=== PATIENT | female | born 1995 | race African-American/Black ===

== ENCOUNTER 2020-01-11 13:58 | Inpatient (IN) | payer MEDICAID, OTHER ==
[~2020-01-11] VITALS: Ht 167.6 cm; Wt 60.7 kg
[2020-01-11] MEDS ORDERED: SODIUM CHLORIDE 0.9% 1,000 ML IVB ONE (14:12)
[2020-01-11 14:23] LABS: Basophils # (auto) 0.1 10 ^3/uL (0-0.2); Basophils % (auto) 0.8 % (0.0-2.0); Eosinophils # (auto) 0 10 ^3/uL (0-0.8); Hematocrit 39.1 % (36.0-46.0); Hemoglobin 13.4 g/dL (12.2-16.2); Lymphocytes # (auto) 1.3 10 ^3/uL (0.4-5.4); Lymphocytes % (auto) 12.2 % (10.0-50.0); Mean Corpuscular Hemoglobin 29.6 pg (28.0-32.0); Mean Corpuscular Hgb Conc. 34.3 g/dL (32.0-36.0); Mean Corpuscular Volume 86.2 fL (80.0-100.0); Monocytes # (auto) 0.6 10 ^3/uL (0-1.3); Nucleated Red Blood Cells % 0.1 %; Platelet Count (auto) 405 10^3/uL (140-450); Red Blood Cells 4.53 10^6/uL (4.0-5.20); Red Cell Distribution Width 13.8 % (11.8-14.3)
[2020-01-11] MEDS: PROMETHAZINE HCL 25 MG/ML 1ML IV PRN ×2 (14:26→22:52)
[2020-01-11 14:41] LABS: Albumin 4.1 g/dL (3.4-5.0); Calcium 8.8 mg/dL (8.5-10.1)
[2020-01-11 14:45] LABS: BUN/Creatinine Ratio 17.6; Bilirubin, Total 0.6 mg/dL (0.2-1.0); Total Protein 8.1 g/dL (6.4-8.2)
[2020-01-11 16:19] LABS: Urine Bacteria NONE SEEN /hpf (None Seen); Urine Blood 1+ /uL (Negative); Urine Mucus FEW (None Seen); Urine Specific Gravity 1.037 (1.001-1.035); Urine WBC 2 /hpf (0 - 5)
[2020-01-11] MEDS ORDERED: SODIUM CHLORIDE 0.9% 1,000 ML IV ONE (17:00)
[2020-01-11] MEDS ORDERED: ONDANSETRON HCL 4 MG/2 ML VIAL IV ONE (17:15)
[2020-01-11] MEDS ORDERED: PROMETHAZINE HCL 25 MG/ML 1ML IV ONE (19:30)
[2020-01-11] MEDS ORDERED: ACETAMINOPHEN 325 MG TAB PO PRN (21:00)
[2020-01-11] MEDS ORDERED: HYDROcodone-ACET 5/325MG TAB PO PRN (21:00)
[2020-01-11] MEDS: POTASSIUM CHL 20MEQ/100ML 100 ML IV SCH (21:05)
[2020-01-11] MEDS: PANTOPRAZOLE 40 MG/10 ML VIAL INJ IV SCH (21:15)
[2020-01-11] MEDS: SODIUM CHLORIDE 0.9% 1,000 ML IV SCH (21:15)
[2020-01-11] MEDS: ONDANSETRON HCL 4 MG/2 ML VIAL IV PRN (21:16)
[2020-01-11 22:30] VITALS: BP 112/72
[2020-01-12] MEDS: POTASSIUM CHL 20MEQ/100ML 100 ML IV SCH (00:36)
[2020-01-12] MEDS: ONDANSETRON HCL 4 MG/2 ML VIAL IV PRN (02:09)
[2020-01-12 05:00] VITALS: BP 102/65
[2020-01-12] MEDS: PROMETHAZINE HCL 25 MG/ML 1ML IV PRN ×3 (05:18→19:25)
[2020-01-12] MEDS: SODIUM CHLORIDE 0.9% 1,000 ML IV SCH ×4 (05:43→23:34)
[2020-01-12 09:00] VITALS: BP 118/61
[2020-01-12] MEDS: PANTOPRAZOLE 40 MG/10 ML VIAL INJ IV SCH (10:44)
[2020-01-12 13:00] VITALS: BP 109/65
[2020-01-12] MEDS: METOCLOPRAMIDE HCL 5MG/ml INJ 2ml VIAL IV PRN (15:34)
[2020-01-12 15:45] LABS: BUN/Creatinine Ratio 12.8; Calcium 8.3 mg/dL (8.5-10.1); Potassium 3.2 mmol/L (3.5-5.1)
[2020-01-12] MEDS ORDERED: ACET-1304 PO (16:28)
[2020-01-12 17:00] VITALS: BP 116/65
[2020-01-12 22:00] VITALS: BP 120/74
[2020-01-13] MEDS: METOCLOPRAMIDE HCL 5MG/ml INJ 2ml VIAL IV PRN ×2 (00:03→17:30)
[2020-01-13 05:00] VITALS: BP 129/73
[2020-01-13] MEDS: PROMETHAZINE HCL 25 MG/ML 1ML IV PRN (05:21)
[2020-01-13 05:55] LABS: Basophils # (auto) 0 10 ^3/uL (0-0.2); Basophils % (auto) 0.6 % (0.0-2.0); Eosinophils # (auto) 0.1 10 ^3/uL (0-0.8); Eosinophils % (auto) 1.7 % (0.0-7.0); Hemoglobin 11.7 g/dL (12.2-16.2); Lymphocytes # (auto) 2.5 10 ^3/uL (0.4-5.4); Lymphocytes % (auto) 32.5 % (10.0-50.0); Mean Corpuscular Hgb Conc. 33.3 g/dL (32.0-36.0); Monocytes # (auto) 0.5 10 ^3/uL (0-1.3); Monocytes % (auto) 6.6 % (0.0-12.0); Neutrophils # (auto) 4.5 10 ^3/uL (1.6-8.6); Neutrophils % (auto) 58.6 % (37.0-80.0); Nucleated Red Blood Cells % 0.1 %; Platelet Count (auto) 338 10^3/uL (140-450); Red Blood Cells 4.03 10^6/uL (4.0-5.20); Red Cell Distribution Width 13.4 % (11.8-14.3); White Blood Cell 7.6 10^3/uL (4.4-10.8)
[2020-01-13 06:14] LABS: BUN/Creatinine Ratio 11.3
[2020-01-13 06:17] LABS: Potassium 2.9 mmol/L (3.5-5.1)
[2020-01-13] MEDS ORDERED: POTASSIUM CHL 20 Meq TABLET PO ONE ×2 (06:45→10:30)
[2020-01-13 09:00] VITALS: BP 144/81
[2020-01-13] MEDS: PANTOPRAZOLE 40 MG/10 ML VIAL INJ IV SCH ×2 (10:38→21:25)
[2020-01-13 10:54] LABS: Barbiturate Scree,Urine NEGATIVE (NEGATIVE); Cannabinoid Screen, Urine POSITIVE (NEGATIVE)
[2020-01-13 11:01] LABS: Amphetamine Screen, Urine NEGATIVE (NEGATIVE); Benzodiazephine Screen, Urine NEGATIVE (NEGATIVE); Cocaine Screen, Urine NEGATIVE (NEGATIVE); Opiate Scree,Urine NEGATIVE (NEGATIVE); Phencyclidine Screen, Urine NEGATIVE (NEGATIVE)
[2020-01-13] MEDS: SODIUM CHLORIDE 0.9% 1,000 ML IV SCH ×3 (11:04→23:38)
[2020-01-13 12:20] LABS: INR 1.19 (0.9-1.15)
[2020-01-13 13:00] VITALS: BP 128/76
[2020-01-13] MEDS: HYOSCYAMINE SULF 0.125 MG ODT TAB PO PRN ×2 (13:47→19:52)
[2020-01-13] MEDS ORDERED: POTASSIUM CHLORIDE 60 MEQ, LIDOCAINE 1% (LOCAL ANESTH.) 6 ML in SODIUM CHL 0.9% 500 ML IV ONE (15:15)
[2020-01-13 17:00] VITALS: BP 135/78
[2020-01-13 21:33] VITALS: BP 124/73
[2020-01-14] MEDS: METOCLOPRAMIDE HCL 5MG/ml INJ 2ml VIAL IV PRN (01:44)
[2020-01-14 05:00] VITALS: BP 109/54
[2020-01-14 06:42] LABS: BUN/Creatinine Ratio 12.1; Calcium 8.1 mg/dL (8.5-10.1); Magnesium 1.8 mg/dL (1.6-2.6); Potassium 3.2 mmol/L (3.5-5.1)
[2020-01-14 09:00] VITALS: BP 128/71
[2020-01-14] MEDS: PANTOPRAZOLE 40 MG/10 ML VIAL INJ IV SCH (10:23)
[2020-01-14] MEDS: POTASSIUM CHL 20MEQ/100ML 100 ML IV SCH ×2 (11:15→13:15)
[2020-01-14] MEDS ORDERED: MAGNESIUM SULFATE 1GM/100ML 100 ML IV ONE (11:15)
[2020-01-14] MEDS ORDERED: LABETALOL HCL 5 MG/ML 4ML SYRINGE IV PRN (12:30)
[2020-01-14] MEDS ORDERED: MIDAZOLAM HCL 1MG/1ML-2 ML VIAL IV PRN (12:30)
[2020-01-14] MEDS ORDERED: MORPHINE SULFATE 4 MG/ML SYR/VIAL IV PRN (12:30)
[2020-01-14] MEDS ORDERED: ONDANSETRON HCL 4 MG/2 ML VIAL IV PRN (12:30)
[2020-01-14] MEDS ORDERED: ePHEDrine SULFATE 50 MG/ML AMP IV PRN (12:30)
[2020-01-14] MEDS ORDERED: METOCLOPRAMIDE HCL 5MG/ml INJ 2ml VIAL IV PRN (12:30)
[2020-01-14] MEDS ORDERED: HYDROmorphone HCL 2 MG/ML VL IV PRN (12:30)
[2020-01-14] MEDS ORDERED: fentaNYL CITRATE 100 MCG/2 ML VL ONE (12:33)
[2020-01-14] MEDS ORDERED: MIDAZOLAM HCL 1MG/1ML-2 ML VIAL ONE (12:34)
[2020-01-14] MEDS ORDERED: DexAMETHasone SOD PHOS 10MG/1ML VIAL INJ ONE (12:49)
[2020-01-14] MEDS ORDERED: PROPOFOL 10 MG/ML 20 ML IV ONE (12:50)
[2020-01-14 13:00] VITALS: BP 136/71
[2020-01-14] MEDS ORDERED: ONDA-144 PO (16:00)
[2020-01-14] MEDS ORDERED: POTASSIUM CHL 20 Meq TABLET PO ONE (16:00)
[2020-01-14 17:00] VITALS: BP 116/73
[2020-01-14 17:01] VITALS: BP 136/71
== END 2020-01-14 18:30 | disposition home or self-care (01) | DRG 249 ==
LOC: ER 13:58 → OVERFLOW 13:59 → WEST WING 22:26
PROVIDERS: ADMIT Hospitalist; ATTEND Internal Medicine
PROC: 0DB68ZX Excision of Stomach, Via Natural or Artificial Opening Endoscopic, Diagnostic (ICD-10-PCS; principal; 2020-01-14 12:25)
DX: R11.2 Nausea with vomiting, unspecified (principal); N17.0 Acute kidney failure with tubular necrosis; J12.81 Pneumonia due to SARS-associated coronavirus; F12.90 Cannabis use, unspecified, uncomplicated; K44.9 Diaphragmatic hernia without obstruction or gangrene; E87.8 Other disorders of electrolyte and fluid balance, not elsewhere classified; E87.6 Hypokalemia; F17.210 Nicotine dependence, cigarettes, uncomplicated; Z79.899 Other long term (current) drug therapy
CPT/HCPCS: 36415; 43239; 74176; 80048; 80053; 80307; 81001; 81025; 82150; 83690; 83735; 84132; 84702; 85025; 85610; 86850; 86900; 86901; C9113; G0378; J1100; J2001; J2250; J2405; J2704; J3480

== ENCOUNTER 2020-01-29 10:52 | Inpatient (IN) | payer MEDICAID ==
[~2020-01-29] VITALS: Ht 167.6 cm; Wt 61.4 kg
[~2020-01-29 10:52] MED LIST: ACET-1304 PO; ONDA-144 PO
[2020-01-29] MEDS ORDERED: PANTOPRAZOLE 40 MG/10 ML VIAL INJ IV STA (10:59)
[2020-01-29] MEDS ORDERED: SODIUM CHLORIDE 0.9% 1,000 ML IVB ONE (10:59)
[2020-01-29] MEDS ORDERED: MORPHINE SULFATE 4 MG/ML SYR/VIAL IV ONE (11:00)
[2020-01-29] MEDS ORDERED: PROCHLORPERAZINE EDISYLATE 5 MG/ML 2ML VIAL IV ONE (11:00)
[2020-01-29 11:17] LABS: Basophils # (auto) 0.1 10 ^3/uL (0-0.2); Eosinophils # (auto) 0 10 ^3/uL (0-0.8); Lymphocytes # (auto) 1.8 10 ^3/uL (0.4-5.4); Monocytes # (auto) 0.8 10 ^3/uL (0-1.3); Nucleated Red Blood Cells % 0.1 %; Red Cell Distribution Width 14.2 % (11.8-14.3)
[2020-01-29 11:18] LABS: Basophils % (auto) 0.5 % (0.0-2.0); Hematocrit 42.4 % (36.0-46.0); Hemoglobin 13.9 g/dL (12.2-16.2); Lymphocytes % (auto) 17.8 % (10.0-50.0); Mean Corpuscular Hemoglobin 28.6 pg (28.0-32.0); Mean Corpuscular Hgb Conc. 32.7 g/dL (32.0-36.0); Mean Corpuscular Volume 87.3 fL (80.0-100.0); Neutrophils # (auto) 7.6 10 ^3/uL (1.6-8.6); Neutrophils % (auto) 73.7 % (37.0-80.0); Platelet Count (auto) 549 10^3/uL (140-450); Red Blood Cells 4.86 10^6/uL (4.0-5.20); White Blood Cell 10.3 10^3/uL (4.4-10.8)
[2020-01-29 11:34] LABS: Albumin 4.3 g/dL (3.4-5.0); Calcium 9.7 mg/dL (8.5-10.1)
[2020-01-29 11:37] LABS: BUN/Creatinine Ratio 16.1; Bilirubin, Total 0.7 mg/dL (0.2-1.0); Total Protein 8.5 g/dL (6.4-8.2)
[2020-01-29] MEDS ORDERED: POTASSIUM CHL 20MEQ/100ML 100 ML IV ONE (11:45)
[2020-01-29] MEDS ORDERED: SODIUM CHLORIDE 0.9% 1,000 ML IV ONE (12:45)
[2020-01-29] MEDS ORDERED: NITROGLYCERIN 0.4 MG SL TAB SL PRN (13:30)
[2020-01-29] MEDS ORDERED: MORPHINE SULF INJ 2 MG/ML SYRINGE 1ML IV PRN (13:30)
[2020-01-29] MEDS ORDERED: SODIUM CHLORIDE 0.9% 1,850 ML IV ONE (13:30)
[2020-01-29 14:08] VITALS: BP 92/53
[2020-01-29] MEDS ORDERED: ACETAMINOPHEN 500 MG TAB PO PRN (14:30)
[2020-01-29] MEDS ORDERED: traMADol HCL 50 MG TAB PO PRN (14:30)
[2020-01-29] MEDS ORDERED: TEMAZEPAM 15 MG CAP PO PRN (14:30)
[2020-01-29] MEDS: FAMOTIDINE (10MG/ML) 2ML VL IV SCH (15:51)
[2020-01-29] MEDS: SOD CHL 0.9%/ KCL 40MEQ 1,000 ML IV SCH (15:51)
[2020-01-29] MEDS: PROMETHAZINE HCL 25 MG/ML 1ML IV PRN ×2 (15:51→20:22)
[2020-01-29 16:59] VITALS: BP 96/49
[2020-01-29 20:00] VITALS: BP 122/73
[2020-01-29 23:04] VITALS: BP 122/73
[2020-01-30] MEDS: PROMETHAZINE HCL 25 MG/ML 1ML IV PRN ×6 (01:23→22:47)
[2020-01-30] MEDS: SOD CHL 0.9%/ KCL 40MEQ 1,000 ML IV SCH ×2 (01:23→10:02)
[2020-01-30] MEDS: FAMOTIDINE (10MG/ML) 2ML VL IV SCH ×2 (02:36→15:01)
[2020-01-30 03:15] LABS: Urine Bacteria FEW /hpf (None Seen); Urine Blood Negative /uL (Negative); Urine Mucus FEW (None Seen); Urine Specific Gravity 1.025 (1.001-1.035); Urine WBC 75 /hpf (0 - 5)
[2020-01-30 05:36] VITALS: BP 120/64
[2020-01-30 06:39] LABS: Albumin 3.2 g/dL (3.4-5.0); Calcium 8.3 mg/dL (8.5-10.1); Potassium 3.7 mmol/L (3.5-5.1)
[2020-01-30 06:43] LABS: BUN/Creatinine Ratio 15.9; Bilirubin, Total 0.5 mg/dL (0.2-1.0); Total Protein 6.1 g/dL (6.4-8.2)
[2020-01-30 08:00] VITALS: BP 104/68
[2020-01-30 09:00] VITALS: BP 104/68
[2020-01-30] MEDS ORDERED: cefTRIAXone 1GM/50ML D5W 50 ML IV ONE (11:00)
[2020-01-30 13:00] VITALS: BP 121/69
[2020-01-30] MEDS ORDERED: ONDA-144 PO (14:13)
[2020-01-30 17:00] VITALS: BP 122/79
[2020-01-30 22:46] VITALS: BP 132/92
[2020-01-31] MEDS: FAMOTIDINE (10MG/ML) 2ML VL IV SCH ×2 (02:30→14:30)
[2020-01-31] MEDS: SOD CHL 0.9%/ KCL 40MEQ 1,000 ML IV SCH ×3 (04:00→16:30)
[2020-01-31] MEDS: PROMETHAZINE HCL 25 MG/ML 1ML IV PRN ×4 (04:32→22:29)
[2020-01-31 05:05] VITALS: BP 133/80
[2020-01-31 06:34] LABS: Basophils # (auto) 0.1 10 ^3/uL (0-0.2); Basophils % (auto) 0.6 % (0.0-2.0); Eosinophils # (auto) 0 10 ^3/uL (0-0.8); Eosinophils % (auto) 0.3 % (0.0-7.0); Lymphocytes # (auto) 2.8 10 ^3/uL (0.4-5.4); Lymphocytes % (auto) 32.4 % (10.0-50.0); Mean Corpuscular Hemoglobin 29.4 pg (28.0-32.0); Mean Corpuscular Hgb Conc. 33.3 g/dL (32.0-36.0); Mean Corpuscular Volume 88.3 fL (80.0-100.0); Monocytes # (auto) 0.7 10 ^3/uL (0-1.3); Monocytes % (auto) 7.6 % (0.0-12.0); Neutrophils # (auto) 5.2 10 ^3/uL (1.6-8.6); Neutrophils % (auto) 59.1 % (37.0-80.0); Nucleated Red Blood Cells % 0.1 %; Platelet Count (auto) 414 10^3/uL (140-450); Red Blood Cells 4.42 10^6/uL (4.0-5.20); Red Cell Distribution Width 13.7 % (11.8-14.3); White Blood Cell 8.7 10^3/uL (4.4-10.8)
[2020-01-31 07:00] LABS: Calcium 8.7 mg/dL (8.5-10.1); Potassium 3.7 mmol/L (3.5-5.1)
[2020-01-31 07:02] LABS: BUN/Creatinine Ratio 6.3
[2020-01-31 08:06] VITALS: BP 127/90
[2020-01-31 09:00] VITALS: BP 127/90
[2020-01-31] MEDS: cefTRIAXone 1GM/50ML D5W 50 ML IV SCH (09:25)
[2020-01-31 12:44] VITALS: BP 124/81
[2020-01-31 17:00] VITALS: BP 130/77
[2020-01-31 22:00] VITALS: BP 122/73
[2020-02-01] MEDS: SOD CHL 0.9%/ KCL 40MEQ 1,000 ML IV SCH ×3 (02:30→21:58)
[2020-02-01] MEDS: FAMOTIDINE (10MG/ML) 2ML VL IV SCH ×2 (03:01→15:10)
[2020-02-01] MEDS: PROMETHAZINE HCL 25 MG/ML 1ML IV PRN ×5 (04:13→23:21)
[2020-02-01 05:00] VITALS: BP 130/78
[2020-02-01 07:11] LABS: BUN/Creatinine Ratio 11.5; Calcium 8.7 mg/dL (8.5-10.1); Potassium 3.9 mmol/L (3.5-5.1)
[2020-02-01 09:00] VITALS: BP 126/70
[2020-02-01] MEDS: cefTRIAXone 1GM/50ML D5W 50 ML IV SCH (09:09)
[2020-02-01 13:00] VITALS: BP 118/65
[2020-02-01 17:00] VITALS: BP 109/78
[2020-02-01 21:55] VITALS: BP 95/53
[2020-02-01 22:00] VITALS: BP 109/72
[2020-02-02] MEDS: D5W/SOD CHLO 0.9% 1,000 ML IV SCH ×2 (01:58→15:58)
[2020-02-02] MEDS: FAMOTIDINE (10MG/ML) 2ML VL IV SCH ×2 (01:58→14:30)
[2020-02-02 04:39] VITALS: BP 106/63
[2020-02-02 09:00] VITALS: BP 103/61
[2020-02-02] MEDS: cefTRIAXone 1GM/50ML D5W 50 ML IV SCH (09:52)
[2020-02-02 13:00] VITALS: BP 104/61
[2020-02-02 14:10] VITALS: BP 104/61
== END 2020-02-02 15:29 | disposition home or self-care (01) | DRG 249 ==
LOC: EDBD 10:52 → ER 10:55 → TELE-CENTR 10:56 → CENTRAL 02-01 08:57
PROVIDERS: ADMIT Internal Medicine; ATTEND Internal Medicine
DX: R11.2 Nausea with vomiting, unspecified (principal); I95.9 Hypotension, unspecified; N39.0 Urinary tract infection, site not specified; Y92.89 Other specified places as the place of occurrence of the external cause; B95.2 Enterococcus as the cause of diseases classified elsewhere; E87.6 Hypokalemia; F17.210 Nicotine dependence, cigarettes, uncomplicated
CPT/HCPCS: 36415; 76705; 80048; 80053; 81001; 81025; 82150; 82962; 83690; 85025; 87081; 87086; 87088; 87186; 96361; 96365; 96366; 96375; C9113; G0378; J0696; J3480; J3490

== ENCOUNTER 2025-04-27 15:26 | Emergency (ER) | payer MEDICAID ==
[~2025-04-27] VITALS: Ht 167.6 cm; Wt 63.6 kg
[2025-04-27 15:33] VITALS: BP 96/71; PULSE 48; RESP 18; TEMP 99; O2SAT 97
--- NOTE | 2025-04-27 16:02 | ED.PDOC ---
GI ASSESSMENT HPI Comments This is a 29 year old female FANTA presenting to the ED with chief complaint of abdominal pain. EMS reports that the patient has been experiencing upper abdominal pain with associated nausea, vomiting, and loss of appetite for the past 2 days. EMS relays that the patient has history of anemia, but is not consistent with her Iron prescription. EMS notes patient was given 4mg of Zofran and IV normal saline. Patient reports that she had smoked marijuana around the time of symptom onset. Patient relays that she is currently on her menses. Patient denies any diarrhea, constipation, dysuria, hematuria, hematemesis, fever, or chills. Chief Complaint: Abdominal Pain Time Seen by MD: 15:42 Reviewed Notes: Nurses Notes, Medications, Allergies Allergies: Coded Allergies: NO KNOWN ALLERGIES (Unverified , 01/11/20) Home Meds Active Scripts Ondansetron (Zofran) 4 Mg Tab, 1 TAB PO Q6HR PRN for NAUSEA / VOMITING, #20 TAB Prov:VAMSHI KONG Pharmacist 01/30/20 Reported Medications Acetaminophen (Tylenol Extra Strength) 500 Mg Tab, 500 MG PO DAILY PRN for MILD PAIN (1-3 PAIN SCALE), TAB 01/12/20 Information Source: Patient Mode of Arrival: Ambulatory Timing: Days Duration: Since onset Prehospital treatment: None Quality: Aching Vomitus: Watery Stool: Normal Severity: Moderate Recent: None Recent Hx of: None Pain Location: Epigastric Modifying Factors: Nothing Associated sign and symptoms: Nausea, Vomiting, Abdominal Pain Past Medical History PAST MEDICAL HISTORY: Denies Surgical History: Denies all surgeries SAND CASTER History: No Pertinent SAND CASTER History Family History Family History: No family hx of Cancer, No family hx of DM, No family hx of Heart ame Social History Smoker: Cigarettes, Less Than 1 Pack/Day Alcohol: Rarely Drugs: Marijuana Lives In: Home Constitutional: denies: chills, diaphoresis, fatigue, fever, malaise, sweats, weakness, others EENTM: denies: blurred vision, double vision, ear bleeding, ear discharge, ear drainage, ear pain, ear ringing, eye pain, eye redness, hearing loss, mouth pain, mouth swelling, nasal discharge, nose bleeding, nose congestion, nose pain, photophobia, tearing, throat pain, throat swelling, voice changes, others Respiratory: denies: cough, hemoptysis, orthopnea, SOB at rest, shortness of breath, SOB with excertion, stridor, wheezing, others Cardiovascular: denies: chest pain, dizzy spells, diaphoresis, Dyspnea on exertion, edema, irregular heart beat, left arm pain, lightheadedness, palpitations, PND, syncope, others Gastrointestinal: reports: abdominal pain, nausea, poor appetite, vomiting; denies: abdomen distended, blood streaked bowels, constipated, diarrhea, dysphagia, difficulty swallowing, hematemesis, melena, poor fluid intake, rectal bleeding, rectal pain, others Genitourinary: denies: abnormal vagina bleeding, burning, dyspareunia, dysuria, flank pain, frequency, hematuria, incontinence, pain, , vagina discharge, urgency, others Neurological: denies: dizziness, fainting, headache, left sided numbness, left sided weakness, numbness, paresthesia, pre-existing deficit, right sided numbness, right sided weakness, seizure, speech problems, tingling, tremors, weakness, others Musculoskeletal: denies: back pain, gout, joint pain, joint swelling, muscle pain, muscle stiffness, neck pain, others Integumetry: denies: bruises, change in color, change in hair/nails, dryness, laceration, lesions, lumps, rash, wounds, others Allergic/Immunocompromised: denies: Difficulty Healing, Frequent Infections, Hives, Itching, others Hematologic/Lymphatic: denies: anemia, blood clots, easy bleeding, easy bruisi ng, swollen glands, others Endocrine: denies: excessive hunger, excessive sweating, excessive thirst, exce ssive urination, flushing, intolerance to cold, intolerance to heat, unexplained weight gain, unexplained weight loss, others Psychiatric: denies: anxiety, bipolar disorder, depression, hopeless, panic disorder, schizophrenia, sleepless, suicidal, others All Other Systems: Reviewed and Negative Physical Exam General Appearance: Moderate Distress, Normal HEENT: Normal ENT Inspection, Pharynx Normal, TMs Normal Neck: Full Range of Motion, Non-Tender, Normal, Normal Inspection Respiratory: Chest Non-Tender, Lungs Clear, No Accessory Muscle Use, No Respiratory Distress, Normal Breath Sounds Cardiovascular: No Edema, No JVD, No Murmur, No Gallop, Normal Peripheral Pulses, Regular Rate/Rhythm Breast Exam: Deferred Gastrointestinal: No Organomegaly, Non Tender, No Pulsatile Mass, Normal Bowel Sounds, Soft Genitalia: Deferred Pelvic: Deferred Rectal: Deferred Extremities: No calf tenderness, Normal capillary refill, Normal inspection, Normal range of motion, Non-tender, No pedal edema Musculoskeletal : Apperance: Normal Neurologic: Alert, home appliances mechanic II-XII nml as Tested, No Motor Deficits, Normal Affect, Normal Mood, No Sensory Deficits Cerebellar Function: NOT DONE Reflexes: NOT DONE Skin: Dry, Normal Color, Warm Peripheral Pulses: 3+ Radial (R), 3+ Radial (L) Lymphatic: No Adenopathy Was a procedure done? Was a procedure done?: No GI differential Dx Differential Diagnosis: Constipation, Diverticular disease, Esophagitis, Gastritis/PUD, Gastroenteritis X-Ray, Labs, Meds, VS Vital Signs Date Time Temp Pulse Resp B/P (MAP) Pulse Ox O2 Delivery O2 Flow Rate FiO2 04/27/25 15:33 99.0 48 18 96/71 97 99.0 Lab Test 04/27/25 16:25 Range/Units White Blood Count 7.0 4.4-10.8 10^3/uL Red Blood Count 4.34 4.0-5.20 10^6/uL Hemoglobin 11.7 L 12.2-16.2 g/dL Hematocrit 36.0 36.0-46.0 % Mean Corpuscular Volume 83.0 80.0-100.0 fL Mean Corpuscular Hemoglobin 26.9 L 28.0-32.0 pg Mean Corpuscular Hemoglobin Concent 32.4 32.0-36.0 g/dL Red Cell Distribution Width 14.3 11.8-14.3 % Platelet Count 579 H 140-450 10^3/uL Mean Platelet Volume 7.8 6.9-10.8 fL Neutrophils (%) (Auto) 65.1 37.0-80.0 % Lymphocytes (%) (Auto) 25.6 10.0-50.0 % Monocytes (%) (Auto) 5.3 0.0-12.0 % Eosinophils (%) (Auto) 1.5 0.0-7.0 % Basophils (%) (Auto) 2.5 H 0.0-2.0 % Neutrophils # (Auto) 4.6 1.6-8.6 10 ^3/uL Lymphocytes # (Auto) 1.8 0.4-5.4 10 ^3/uL Monocytes # (Auto) 0.4 0-1.3 10 ^3/uL Eosinophils # (Auto) 0.1 0-0.8 10 ^3/uL Basophils # (Auto) 0.2 0-0.2 10 ^3/uL Nucleated Red Blood Cells 0.1 % Sodium Level 145 136-145 mmol/L Potassium Level 3.3 L 3.5-5.1 mmol/L Chloride Level 111 H 98-107 mmol/L Carbon Dioxide Level 22 20-31 mmol/L Anion Gap 12 5-15 Blood Urea Nitrogen 8 L 9-23 mg/dL Creatinine 0.81 0.550-1.02 mg/dL Glomerular Filtration Rate Calc 99 >90 mL/min BUN/Creatinine Ratio 9.9 L 10.0-20.0 Serum Glucose 88 74-106 mg/dL Calcium Level 9.5 8.7-10.4 mg/dL Patient alert. Complaining of abdominal pain. Blood pressure on the low side. Establish intravenous access. Was given fluids. Was given Zofran. Was given morphine. Does use marijuana. 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 Explained to the patient. Continue monitoring. Time of 1ST Reevaluation: 16:42 Reevaluation 1ST: Unchanged Patient Education/Counseling: Diagnosis, Treatment Family Education/Counseling: No Family Present SEPSIS Sepsis Screen Physician Orders Urinalysis (04/27/25 16:02) Sodium Chloride 0.9% (04/27/25 16:15) Sodium Chloride 0.9% (04/27/25 16:15) Drug Screen (04/27/25 16:04) Vital Signs Date Time Temp Pulse Resp B/P (MAP) Pulse Ox O2 Delivery O2 Flow Rate FiO2 04/27/25 15:33 99.0 48 18 96/71 97 99.0 Laboratory Tests Test 04/27/25 16:25 White Blood Count 7.0 10^3/uL (4.4-10.8) Departure 1 Departure Time of Disposition: 16:03 Impression: Primary Impression: Hypotension Qualified Codes: I95.9 - Hypotension, unspecified Additional Impression: Non-specific colitis Disposition: ADMITTED INPATIENT Admit to: Med Surg Condition: Guarded Critical Care Note Critical Care Time?: No Stability Stability form required: No Heart Score Heart Score: Heart Score Response (Comments) Value History N/A 0 EKG N/A 0 Age N/A 0 Risk Factors N/A 0 Troponin N/A 0 Total 0 I personally scribed for XAVIER CAMEJO MD ([email or web address]) on 04/27/25 at 16:02. Electronically submitted by Moses Diggs ([email or web address]). XAVIER CAMEJO MD Apr 27, 2025 16:02
[2025-04-27] MEDS ORDERED: SODIUM CHLORIDE 0.9% 1,000 ML IV ONE (16:15)
[2025-04-27] MEDS ORDERED: MORPHINE SULFATE 4 MG/ML SYR/VIAL IV ONE (16:15)
[2025-04-27] MEDS ORDERED: SODIUM CHLORIDE 0.9% 1,000 ML IVB ONE (16:15)
[2025-04-27] MEDS ORDERED: ONDANSETRON HCL 4 MG/2 ML VIAL IV ONE (16:15)
[2025-04-27 16:41] LABS: Hematocrit 36.0 % (36.0-46.0); Hemoglobin 11.7 g/dL (12.2-16.2); Mean Corpuscular Hemoglobin 26.9 pg (28.0-32.0); Mean Corpuscular Volume 83.0 fL (80.0-100.0); Nucleated Red Blood Cells % 0.1 %
[2025-04-27 16:47] LABS: Anion Gap 12 (5-15); Carbon Dioxide 22 mmol/L (20-31); Chloride 111 mmol/L (98-107); Potassium 3.3 mmol/L (3.5-5.1); Sodium 145 mmol/L (136-145)
[2025-04-27 16:48] LABS: Calcium 9.5 mg/dL (8.7-10.4)
[2025-04-27 16:52] LABS: BUN/Creatinine Ratio 9.9 (10.0-20.0); Glucose 88 mg/dL (74-106)
[2025-04-27 16:59] LABS: Blood Urea Nitrogen 8 mg/dL (9-23)
[2025-04-27] MEDS ORDERED: POTASSIUM EFFERVESENT TAB 25 MEQ PO ONE (17:15)
== END 2025-04-27 17:43 | disposition left against medical advice (07) ==
LOC: EDBD 15:26 → ER 15:26
DX: K52.9 Noninfective gastroenteritis and colitis, unspecified (principal); I95.9 Hypotension, unspecified; F17.210 Nicotine dependence, cigarettes, uncomplicated; F12.90 Cannabis use, unspecified, uncomplicated; F10.90 Alcohol use, unspecified, uncomplicated; Z79.899 Other long term (current) drug therapy; Y90.9 Presence of alcohol in blood, level not specified
CPT/HCPCS: 36415; 80048; 85025

== ENCOUNTER 2025-04-28 14:32 | Inpatient (IN) | payer MEDICAID ==
[~2025-04-28] VITALS: Ht 167.6 cm; Wt 61.7 kg
--- NOTE | 2025-04-28 14:55 | ED.PDOC ---
History of Present Illness HPI Comments 29-year-old female with no prior medical history presents to the emergency department for chief complaint of weakness. EMS reports, patient is coming from home where she complains of weakness onset, today (04/28/25). EMS relays, upon arrival to seen patient was found to be bradycardic with a heart rate in the 40s. In route to the emergency department, patient was given Atropine 1mg and heart rate improved to 90 beats per minute. At this time patient states she would like to be seen at another hospital due to being seen at [facility] yesterday (04/27/25) for DX:Abdominal pain and ultimately leaving AMA. Time Seen by MD: 14:50 Reviewed Notes: Nurses Notes, Medications, Allergies Allergies: Coded Allergies: NO KNOWN ALLERGIES (Unverified , 01/11/20) Home Meds Active Scripts Ondansetron (Zofran) 4 Mg Tab, 1 TAB PO Q6HR PRN for NAUSEA / VOMITING, #20 TAB Prov:VAMSHI KONG Pharmacist 01/30/20 Reported Medications Acetaminophen (Tylenol Extra Strength) 500 Mg Tab, 500 MG PO DAILY PRN for MILD PAIN (1-3 PAIN SCALE), TAB 01/12/20 Information Source: Patient, Emergency Med Personnel Mode of Arrival: EMS Severity: Moderate Timing: Hours Duration: Since onset Prehospital treatment: Other (ATROPINE) Past Medical History PAST MEDICAL HISTORY: Denies Surgical History: Denies all surgeries HOSPITAL WARD CLERK History: No Pertinent HOSPITAL WARD CLERK History Family History Family History: No family hx of Cancer, No family hx of DM, No family hx of Heart ame Social History Smoker: Cigarettes, Less Than 1 Pack/Day Alcohol: Rarely Drugs: Marijuana Lives In: Home Constitutional: reports: weakness; denies: chills, diaphoresis, fatigue, fever, malaise, sweats, others EENTM: denies: blurred vision, double vision, ear bleeding, ear discharge, ear drainage, ear pain, ear ringing, eye pain, eye redness, hearing loss, mouth pain, mouth swelling, nasal discharge, nose bleeding, nose congestion, nose pain, photophobia, tearing, throat pain, throat swelling, voice changes, others Respiratory: denies: cough, hemoptysis, orthopnea, SOB at rest, shortness of breath, SOB with excertion, stridor, wheezing, others Cardiovascular: denies: chest pain, dizzy spells, diaphoresis, Dyspnea on exertion, edema, irregular heart beat, left arm pain, lightheadedness, palpitations, PND, syncope, others Gastrointestinal: reports: poor appetite; denies: abdomen distended, abdominal pain, blood streaked bowels, constipated, diarrhea, dysphagia, difficulty swallowing, hematemesis, melena, nausea, poor fluid intake, rectal bleeding, rectal pain, vomiting, others Genitourinary: denies: abnormal vagina bleeding, burning, dyspareunia, dysuria, flank pain, frequency, hematuria, incontinence, pain, , vagina discharge, urgency, others Neurological: denies: dizziness, fainting, headache, left sided numbness, left sided weakness, numbness, paresthesia, pre-existing deficit, right sided n umbness, right sided weakness, seizure, speech problems, tingling, tremors, weakness, others Musculoskeletal: denies: back pain, gout, joint pain, joint swelling, muscle pain, muscle stiffness, neck pain, others Integumetry: denies: bruises, change in color, change in hair/nails, dryness, laceration, lesions, lumps, rash, wounds, others Allergic/Immunocompromised: denies: Difficulty Healing, Frequent Infections, Hives, Itching, others Hematologic/Lymphatic: denies: anemia, blood clots, easy bleeding, easy bruising, swollen glands, others Endocrine: denies: excessive hunger, excessive sweating, excessive thirst, excessive urination, flushing, intolerance to cold, intolerance to heat, unexplained weight gain, unexplained weight loss, others Psychiatric: denies: anxiety, bipolar disorder, depression, hopeless, panic disorder, schizophrenia, sleepless, suicidal, others All Other Systems: Reviewed and Negative Physical Exam General Appearance: Moderate Distress HEENT: Normal ENT Inspection, Pharynx Normal, TMs Normal Neck: Full Range of Motion, Non-Tender, Normal, Normal Inspection Respiratory: Chest Non-Tender, Lungs Clear, No Accessory Muscle Use, No Respiratory Distress, Normal Breath Sounds Cardiovascular: Bradycardia Breast Exam: Deferred Gastrointestinal: No Organomegaly, Non Tender, No Pulsatile Mass, Normal Bowel Sounds, Soft Genitalia: Deferred Pelvic: Deferred Rectal: Deferred Extremities: No calf tenderness, Normal capillary refill, Normal inspection, Normal range of motion, Non-tender, No pedal edema Musculoskeletal : Apperance: Normal Neurologic: Alert, instructional design manager II-XII nml as Tested, No Motor Deficits, Normal Affect, Normal Mood, No Sensory Deficits Cerebellar Function: NOT DONE Reflexes: NOT DONE Skin: Dry, Normal Color, Warm Peripheral Pulses: 3+ Radial (R), 3+ Radial (L) Lymphatic: No Adenopathy Was a procedure done? Was a procedure done?: No EKG EKG : Pulse Rate (adult): 96 [place]: Normal Block: None Hypertrophy: DANIELE ST: Normal Differential Dx Considerations may include: ANEMIA, MENORRHAGIA, FIBROID, PID, THYROID DISEASE X-Ray, Labs, Meds, VS Vital Signs Date Time Temp Pulse Resp B/P (MAP) Pulse Ox O2 Delivery O2 Flow Rate FiO2 04/28/25 15:18 98.3 92 22 125/82 99 98.3 04/28/25 14:55 96 04/28/25 14:43 96 Lab Test 04/28/25 15:16 Range/Units White Blood Count 8.0 4.4-10.8 10^3/uL Red Blood Count 4.37 4.0-5.20 10^6/uL Hemoglobin 11.9 L 12.2-16.2 g/dL Hematocrit 36.0 36.0-46.0 % Mean Corpuscular Volume 82.4 80.0-100.0 fL Mean Corpuscular Hemoglobin 27.3 L 28.0-32.0 pg Mean Corpuscular Hemoglobin Concent 33.1 32.0-36.0 g/dL Red Cell Distribution Width 14.3 11.8-14.3 % Platelet Count 597 H 140-450 10^3/uL Mean Platelet Volume 7.9 6.9-10.8 fL Neutrophils (%) (Auto) 66.3 37.0-80.0 % Lymphocytes (%) (Auto) 25.2 10.0-50.0 % Monocytes (%) (Auto) 6.7 0.0-12.0 % Eosinophils (%) (Auto) 0.3 0.0-7.0 % Basophils (%) (Auto) 1.5 0.0-2.0 % Neutrophils # (Auto) 5.3 1.6-8.6 10 ^3/uL Lymphocytes # (Auto) 2.0 0.4-5.4 10 ^3/uL Monocytes # (Auto) 0.5 0-1.3 10 ^3/uL Eosinophils # (Auto) 0 0-0.8 10 ^3/uL Basophils # (Auto) 0.1 0-0.2 10 ^3/uL Nucleated Red Blood Cells 0.1 % Sodium Level 146 H 136-145 mmol/L Potassium Level 3.1 L 3.5-5.1 mmol/L Chloride Level 110 H 98-107 mmol/L Carbon Dioxide Level 21 20-31 mmol/L Anion Gap 15 5-15 Blood Urea Nitrogen 12 9-23 mg/dL Creatinine 0.88 0.550-1.02 mg/dL Glomerular Filtration Rate Calc 90 >90 mL/min BUN/Creatinine Ratio 13.6 10.0-20.0 Serum Glucose 75 74-106 mg/dL Calcium Level 9.7 8.7-10.4 mg/dL Current Medications Medications (Trade) Dose Ordered Sig/Radha Route Start Time Stop Time Status Last Admin Sodium Chloride 1,000 ml @ 1,000 mls/hr Q1H ONCE IV 04/28/25 15:15 04/28/25 16:14 04/28/25 15:30 Ondansetron HCl (Zofran) 4 mg ONCE ONCE IV 04/28/25 15:15 04/28/25 15:16 DC 04/28/25 15:33 Patient alert. Was seen here for the same symptom yesterday. Bradycardia. Saturation pristine on room air. Uses marijuana. Establish intravenous access. Was given fluids. Was given Zofran. Potassium is low. Was given potassium. Reviewed her previous visit. Continue monitoring. Time of 1ST Reevaluation: 15:20 Reevaluation 1ST: Unchanged Patient Education/Counseling: Diagnosis, Treatment Family Education/Counseling: No Family Present SEPSIS Sepsis Screen Physician Orders Urinalysis (04/28/25 15:02) Sodium Chloride 0.9% (04/28/25 15:15) Sodium Chloride 0.9% (04/28/25 15:15) Vital Signs Date Time Temp Pulse Resp B/P (MAP) Pulse Ox O2 Delivery O2 Flow Rate FiO2 04/28/25 15:18 98.3 92 22 125/82 99 98.3 04/28/25 14:55 96 04/28/25 14:43 96 Laboratory Tests Test 04/28/25 15:16 White Blood Count 8.0 10^3/uL (4.4-10.8) Medications Medications Dose Ordered Sig/Radha Route Start Time Stop Time Status Last Admin Dose Admin Ondansetron HCl 4 mg ONCE ONCE IV 04/28/25 15:15 04/28/25 15:16 DC 04/28/25 15:33 Sodium Chloride 1,000 ml @ 1,000 mls/hr Q1H ONCE IV 04/28/25 15:15 04/28/25 16:14 04/28/25 15:30 Departure 1 Departure Time of Disposition: 15:54 Impression: Primary Impression: Hypotension Qualified Codes: I95.9 - Hypotension, unspecified Additional Impressions: Non-specific colitis Bradycardia Disposition: ADMITTED INPATIENT Admit to: Med Surg Condition: Guarded Critical Care Note Critical Care Time?: No Stability Stability form required: No Heart Score Heart Score: Heart Score Response (Comments) Value History N/A 0 EKG N/A 0 Age N/A 0 Risk Factors N/A 0 Troponin N/A 0 Total 0 I personally scribed for XAVIER CAMEJO MD ([email or web address]) on 04/28/25 at 14:55. Electronically submitted by Aniyah Mejia ([email or web address]). I personally scribed for XAVIER CAMEJO MD ([email or web address]) on 04/28/25 at 15:29. Electronically submitted by Aniyah Mejia ([email or web address]). XAVIER CAMEJO MD Apr 28, 2025 14:55
[2025-04-28 15:24] LABS: Mean Corpuscular Hemoglobin 27.3 pg (28.0-32.0); Nucleated Red Blood Cells % 0.1 %
[2025-04-28 15:26] LABS: Hematocrit 36.0 % (36.0-46.0); Hemoglobin 11.9 g/dL (12.2-16.2); Mean Corpuscular Volume 82.4 fL (80.0-100.0)
[2025-04-28 15:30] VITALS: PULSE 75; RESP 12; O2SAT 100
[2025-04-28 15:30] LABS: Anion Gap 15 (5-15); Carbon Dioxide 21 mmol/L (20-31)
[2025-04-28] MEDS: SODIUM CHLORIDE 0.9% 1,000 ML IV ONE ×3 (15:30→16:44)
[2025-04-28 15:31] LABS: Calcium 9.7 mg/dL (8.7-10.4); Chloride 110 mmol/L (98-107); Potassium 3.1 mmol/L (3.5-5.1); Sodium 146 mmol/L (136-145)
[2025-04-28] MEDS: ONDANSETRON HCL 4 MG/2 ML VIAL IV ONE (15:33)
[2025-04-28 15:35] LABS: Glucose 75 mg/dL (74-106)
--- NOTE | 2025-04-28 15:35 | ECG ---
[facility] Test Date: 2025-04-28 Test Time: 14:43:21 Pat Name: CONCHA SAUCEDO Department: ED Room: 0214T Gender: F Crude Unit Operator: CALE : 1995 Requested By: XAVIER CAMEJO Order Number: [id number] Reading MD: Zhen Altamirano Measurements Intervals Beyer Rate: 96 P: 68 MD: 126 QRS: 74 QRSD: 80 T: 16 QT: 388 QTc: 491 Interpretive Statements Sinus rhythm Right atrial enlargement Nonspecific T abnormalities, anterior leads Borderline prolonged QT interval Electronically Signed On 05-04-2025 17:29:43 PDT by Zhen Altamirano Please click the below link to view image of tracing.
[2025-04-28 15:36] LABS: BUN/Creatinine Ratio 13.6 (10.0-20.0); Blood Urea Nitrogen 12 mg/dL (9-23)
[2025-04-28] MEDS ORDERED: ACETAMINOPHEN 325 MG TAB PO PRN (16:30)
--- NOTE | 2025-04-28 16:30 | DVH ---
Exam: CT CT AB PEL WO CON-NO ORAL OR IV History: colitis Comparison Study: None Technique: Multidetector spiral CT of the abdomen and pelvis was performed from lung bases to pubic symphysis. Imaging was performed without IV contrast. Axial, coronal and sagittal multiplanar reform ats were obtained from the axial data set by the technologist. Radiation dose : Abdomen/Pelvis: CTDIvol 5 mGy, DLP 291 mGy*cm. Findings: Evaluation of solid organs is limited due to lack of intravenous contrast use. Lung Bases: No acute or significant lung base finding. Normal heart size. No pleural or pericardial effusion. Liver: The liver is normal in size. No focal lesions. Gallbladder and biliary Tree: Unremarkable Spleen: Unremarkable Pancreas: The pancreas is grossly normal in appearance. Adrenal Glands: Unremarkable Kidneys: Punctate left lower pole renal calculus. No hydronephrosis. Bladder: Grossly unremarkable for degree of distention. Bowel: The stomach is grossly normal in appearance. Small bowel and colon are normal in caliber and d istribution. Normal appendix is visualized in the right lower quadrant without findings of appendicit is. Ascites: Absent Lymphadenopathy: No mesenteric, retroperitoneal or periportal lymphadenopathy. Abdominal wall and Mesentery: Unremarkable. Vasculature: The visualized abdominal aorta is normal in size and caliber. Evaluation of abdominal a nd pelvic vessels is limited due to lack of intravenous contrast. Pelvic Organs: Unremarkable Musculoskeletal: No aggressive focal bony lesions, acute fractures or dislocation. IMPRESSION: 1. No acute abdominal or pelvic findings. Punctate nonobstructive left renal calculus. Consider follo w-up exam with intravenous contrast. Radiation optimization: All CT scans at this facility use at least one of these dose optimization senthil hniques: Automated exposure control mA and/or kV adjustment per patient size (includes targeted exams where dose is matched to clinical indication) or iterative reconstruction. HS:Y
[2025-04-28] MEDS: POTASSIUM CHL 20 Meq TABLET PO ONE (17:46)
[2025-04-28] MEDS: ENOXAPARIN SOD 40 MG/0.4 ML SYRINGE SC ONE (18:00)
[2025-04-28] MEDS ORDERED: MORPHINE SULFATE INJ 2 MG/ml SYRG IV PRN (18:00)
[2025-04-28] MEDS ORDERED: NITROGLYCERIN 0.4 MG SL TAB SL PRN (18:00)
[2025-04-28] MEDS: LACTATED RINGER'S 1,000 ML IV SCH (18:00)
--- NOTE | 2025-04-28 18:00 | DVHHP2 ---
History of Present Illness Reason for Visit: Generalized weakness History of Present Illness The patient is a 29-year-old female who denies past medical history presented to [facility] ED with complaint of generalized weakness. Patient reports symptoms progressively get worse with intractable nausea and vomiting. As reported by EMS, patient was found to be bradycardia with a heart rate in the 40s and was given atropine sulfate 1 mg and heart rate improved to 90 per minute. Patient was seen and evaluated in the ED, laboratory data shows WBC 8.0, platelets 597, sodium 146, potassium 3.1, BUN 12, creatinine 0.88, GFR 90, glucose 75, calcium 9.7, blood pressure 114/82, heart rate 90, temperature 98.3 F, O2 saturation 98% on room air. Abdomen/pelvis CT showed no acute abdominal or pelvic finding; punctate nonobstructive left renal calculus noted. Please see medication orders section in the computer. On my assessment, patient denied chest pain, no headache, no dizziness, no shortness of breaths, no abdominal pain, nausea or vomiting at this moment, no fever, no chills. Patient was admitted for further evaluation and medical management. Past Medical History Denies past medical history Past Surgical History Denies all surgeries Family History Reviewed, noncontributory to the management of this case. Past Social History Patient lives at home, smokes cigarettes less than 1 pack per day, denies alcohol use, uses marijuana. Review of Systems Constitutional: Yes: Weakness; No: Fever, Chills, Sweats, Malaise, Other Eyes: No: Pain, Vision change, Conjunctivae inflammation, Eyelid inflammation, Other, Redness ENT: No: Ear pain, Ear discharge, Nose pain, Nose discharge, Nose congestion, Mouth pain, Mouth swelling, Throat pain, Throat swelling, Other Respiratory: No: Cough, Dry, Shortness of breath, SOB with excertion, Wheezing, Hemoptysis, Pleuritic Pain, Sputum, Wheezing, Other Cardiovascular: No: Chest Pain, Palpitations, Orthopnea, Paroxysmal Noc. Dyspnea, Edema, Lt Headedness, Other Gastrointestinal: Nausea, Vomiting, Other (Poor appetite); No: Abdominal Pain, Diarrhea, Constipation, Melena, Hematochezia Genitourinary: No Dysuria, No Frequency, No Incontinence, No Hematuria, No Retention, No Other Musculoskeletal: No: other, neck pain, shoulder pain, arm pain, back pain, hand pain, leg pain, foot pain Skin: No: Rash, Lesions, Jaundice, Bruising, Other Neurological: No: Weakness, Numbness, Incoordination, Change in speech, Confusion, Seizures, Other Allergies: Coded Allergies: NO KNOWN ALLERGIES (Unverified , 01/11/20) Medications Current Medications Medications Dose Ordered Sig/Radha Route Start Time Stop Time Status Last Admin Dose Admin Sodium Chloride 10 ml Q8HR IV 04/28/25 22:00 Acetaminophen/ Hydrocodone Bitart 1 tab Q4HP PRN PO 04/28/25 16:30 Ondansetron HCl 4 mg Q4HP PRN IV 04/28/25 16:30 Docusate Sodium 100 mg BIDPRN PRN PO 04/28/25 16:30 Enoxaparin Sodium 40 mg DAILY SC 04/29/25 10:00 Acetaminophen 650 mg Q6HP PRN PO 04/28/25 16:30 Lactated Ringer's 1,000 ml @ 75 mls/hr [id number] IV 04/28/25 16:45 Exam Vital Signs Vital Signs Date Time Temp Pulse Resp B/P (MAP) Pulse Ox O2 Delivery O2 Flow Rate FiO2 04/28/25 16:00 75 04/28/25 15:25 12 114/62 (79) 98 04/28/25 15:18 98.3 98.3 General Appearance: Alert, Oriented X3, Cooperative, No acute distress HEENT: Atraumatic, PERRLA, EOMI, Mucous membr. moist/pink Respiratory: Clear to auscultation, Normal air movement Cardiovascular: Regular rate, Normal S1, Normal S2, No murmurs Abdominal: Normal bowel sounds, Soft, No hepatospenomegaly, No masses, Other (Reports tenderness) Extremities: No clubbing, No cyanosis, No edema, Normal pulses, No tenderness/swelling Skin: No rashes, No breakdown, No significant lesion Neuro: Normal speech, Normal tone, Sensation intact, Cranial nerves 3-12 NL, Reflexes 2+, Other (Generalized weakness) Psych/Mental Status: Mental status NL, Mood NL Labs/Xrays Labs Test 04/28/25 15:16 Range/Units White Blood Count 8.0 4.4-10.8 10^3/uL Red Blood Count 4.37 4.0-5.20 10^6/uL Hemoglobin 11.9 L 12.2-16.2 g/dL Hematocrit 36.0 36.0-46.0 % Mean Corpuscular Volume 82.4 80.0-100.0 fL Mean Corpuscular Hemoglobin 27.3 L 28.0-32.0 pg Mean Corpuscular Hemoglobin Concent 33.1 32.0-36.0 g/dL Red Cell Distribution Width 14.3 11.8-14.3 % Platelet Count 597 H 140-450 10^3/uL Mean Platelet Volume 7.9 6.9-10.8 fL Neutrophils (%) (Auto) 66.3 37.0-80.0 % Lymphocytes (%) (Auto) 25.2 10.0-50.0 % Monocytes (%) (Auto) 6.7 0.0-12.0 % Eosinophils (%) (Auto) 0.3 0.0-7.0 % Basophils (%) (Auto) 1.5 0.0-2.0 % Neutrophils # (Auto) 5.3 1.6-8.6 10 ^3/uL Lymphocytes # (Auto) 2.0 0.4-5.4 10 ^3/uL Monocytes # (Auto) 0.5 0-1.3 10 ^3/uL Eosinophils # (Auto) 0 0-0.8 10 ^3/uL Basophils # (Auto) 0.1 0-0.2 10 ^3/uL Nucleated Red Blood Cells 0.1 % Sodium Level 146 H 136-145 mmol/L Potassium Level 3.1 L 3.5-5.1 mmol/L Chloride Level 110 H 98-107 mmol/L Carbon Dioxide Level 21 20-31 mmol/L Anion Gap 15 5-15 Blood Urea Nitrogen 12 9-23 mg/dL Creatinine 0.88 0.550-1.02 mg/dL Glomerular Filtration Rate Calc 90 >90 mL/min BUN/Creatinine Ratio 13.6 10.0-20.0 Serum Glucose 75 74-106 mg/dL Calcium Level 9.7 8.7-10.4 mg/dL PATIENT: LE SAUCEDOYIAACCT: [id number] UNIT: [id number] : 1995 LOC: ER ROOM / BED: / AGE / SEX: 29 / F ADM STATUS: REG ER SERVICE 1555 ORDERING PHYSICIAN: XAVIER CAMEJO MD PROCEDURE(s): ABPL - CT AB PEL WO CON-NO ORAL OR IV REASON: colitis ORDER NUMBER(s): [id number], ACCESSION NUMBER(s): [id number] Exam: CT CT AB PEL WO CON-NO ORAL OR IV History: colitis Comparison Study: None Technique: Multidetector spiral CT of the abdomen and pelvis was performed from lung bases to pubic symphysis. Imaging was performed without IV contrast. Axial, coronal and sagittal multiplanar reformats were obtained from the axial data set by the technologist. Radiation dose : Abdomen/Pelvis: CTDIvol 5 mGy, DLP 291 mGy*cm. Findings: Evaluation of solid organs is limited due to lack of intravenous contrast use. Lung Bases: No acute or significant lung base finding. Normal heart size. No pleural or pericardial effusion. Liver: The liver is normal in size. No focal lesions. Gallbladder and biliary Tree: Unremarkable Spleen: Unremarkable Pancreas: The pancreas is grossly normal in appearance. Adrenal Glands: Unremarkable Kidneys: Punctate left lower pole renal calculus. No hydronephrosis. Bladder: Grossly unremarkable for degree of distention. Bowel: The stomach is grossly normal in appearance. Small bowel and colon are normal in caliber and distribution. Normal appendix is visualized in the right lower quadrant without findings of appendicitis. Ascites: Absent Lymphadenopathy: No mesenteric, retroperitoneal or periportal lymphadenopathy. Abdominal wall and Mesentery: Unremarkable. Vasculature: The visualized abdominal aorta is normal in size and caliber. Evaluation of abdominal and pelvic vessels is limited due to lack of intravenous contrast. Pelvic Organs: Unremarkable Musculoskeletal: No aggressive focal bony lesions, acute fractures or dislocation. IMPRESSION: 1. No acute abdominal or pelvic findings. Punctate nonobstructive left renal calculus. Consider follow-up exam with intravenous contrast. SEPSIS Sepsis Screen Date sepsis recognized/suspect: Apr 28, 2025 Time Sepsis recognized/suspect: 1522 Recent Procedure: No On Antibiotic Therapy: No Respiratory Rate >20: Yes Heart Rate >90: Yes Temp<36 C (96.8 F) or >38.3 C: No SBP <90 or MAP <65 mmHG: No New Acute Mental Status Change: No Is the patient on CPAP, BIPAP,: No Physician Orders Urinalysis (04/28/25 15:02) Sodium Chloride 0.9% (04/28/25 15:15) Ct Ab Pel Wo Con-No Oral Or Iv (04/28/25 15:55) Drug Screen (04/28/25 16:01) Allergies (04/28/25 16:28) Code Status (04/28/25 16:28) Sodium Chloride Lock (Saline Lock Ns) (04/28/25 22:00) Oxygen Per Hour (04/28/25 16:28) Hydrocodone-Acet 5/325mg Tab (Choteau (04/28/25 16:30) Ondansetron Hcl (Zofran) (04/28/25 16:30) Docusate Sodium Capsule (Colace Capsule) (04/28/25 16:30) Enoxaparin Sodium (Lovenox) (04/29/25 10:00) Complete Blood Count (04/29/25 04:00) Comprehensive Metabolic Panel (04/29/25 04:00) Cardiac Diet-2gna,Lofat,Lochol (04/28/25 Dinner) Condition: Serious (04/28/25 16:28) Acetaminophen Tablet (Tylenol Tablet) (04/28/25 16:30) Bedrest With Bathroom Privileg (04/28/25 16:28) Sequential Compression Device (04/28/25 ) Lactated Ringer's (04/28/25 16:45) Admit (04/28/25 17:58) Nitroglycerin Sublingual (Ntrostat Subli (04/28/25 18:00) Morphine Sulfate Injection (04/28/25 18:00) Stat Ekg For Chest Pain (04/28/25 17:58) Notify Md Of Changes From Base (04/28/25 17:58) Keypuncher For 24 Hours (04/28/25 17:58) Emergency Dysrhythmia Protocol (04/28/25 17:58) Rhythm Strips Once Every Shift (04/28/25 17:58) Oxygen By Nasal Cannula (04/28/25 17:58) Vital Signs Date Time Temp Pulse Resp B/P (MAP) Pulse Ox O2 Delivery O2 Flow Rate FiO2 04/28/25 16:00 75 04/28/25 15:25 90 12 114/62 (79) 98 04/28/25 15:18 98.3 92 22 125/82 99 98.3 04/28/25 14:55 96 04/28/25 14:43 96 Laboratory Tests Test 04/28/25 15:16 White Blood Count 8.0 10^3/uL (4.4-10.8) Medications Medications Dose Ordered Sig/Radha Route Start Time Stop Time Status Last Admin Dose Admin Ondansetron HCl 4 mg ONCE ONCE IV 04/28/25 15:15 04/28/25 15:16 DC 04/28/25 15:33 4 MG Sodium Chloride 1,000 ml @ 1,000 mls/hr Q1H ONCE IV 04/28/25 15:15 04/28/25 16:14 DC 04/28/25 15:30 1,000 MLS/HR Sodium Chloride 1,000 ml @ 1,000 mls/hr Q1H ONCE IV 04/28/25 16:45 04/28/25 17:44 DC 04/28/25 16:44 1,000 MLS/HR Assessment/Plan Assessment/Plan Generalized weakness Thrombocytosis Renal calculus, left Electrolyte imbalance Intractable nausea and vomiting Plan 1. Admit to telemetry unit 2. Breathing treatment 3. Pain control management 4. Management of fluids and electrolytes 5. Consultation for hospitalist 6. Diagnostic tests abdomen/pelvis CT 7. DVT prophylaxis-on SCDs 8. Repeat labs CBC, CMP in a.m. 9. Continue with current medical management 10. Treatment plan discussed with patient and RN. Patient verbalized understanding. Plan discussed with: Patient, Other (RN) My Orders Orders - SELMA NEWELL DNP Procedure Category Date Status Time Allergies LUISITO 04/28/25 In Process 16:28 Code Status CODE 04/28/25 Transmitted 16:28 Sodium Chloride Lock PHA 04/28/25 In Process (Saline Lock Ns) 22:00 Oxygen Per Hour RT 04/28/25 Transmitted 16:28 Hydrocodone-Acet PHA 04/28/25 In Process 5/325mg Tab (Choteau 16:30 Ondansetron Hcl PHA 04/28/25 In Process (Zofran) 16:30 Docusate Sodium PHA 04/28/25 In Process Capsule (Colace 16:30 Enoxaparin Sodium PHA 04/29/25 In Process (Lovenox) 10:00 Complete Blood Count LAB 04/29/25 Verified 04:00 Comprehensive LAB 04/29/25 Verified Metabolic Panel 04:00 Cardiac DIET 04/28/25 Transmitted Diet-2gna,Lofat,Lochol Dinner Condition: Serious [facility] 04/28/25 In Process 16:28 Acetaminophen Tablet [facility] 04/28/25 In Process (Tylenol Tablet) 16:30 Bedrest With Bathroom [facility] 04/28/25 In Process Privileg 16:28 Sequential [facility] 04/28/25 In Process Compression Device Lactated Ringer's [facility] 04/28/25 In Process 16:45 Admit ADMIT 04/28/25 Transmitted 17:58 Nitroglycerin [facility] 04/28/25 Transmitted Sublingual (Ntrostat 18:00 Morphine Sulfate [facility] 04/28/25 Transmitted Injection 18:00 Stat Ekg For Chest [facility] 04/28/25 Transmitted Pain 17:58 Notify Md Of Changes [facility] 04/28/25 Transmitted From Base 17:58 Keypuncher For [facility] 04/28/25 Transmitted 24 Hours 17:58 Emergency Dysrhythmia [facility] 04/28/25 Transmitted Protocol 17:58 Rhythm Strips Once [facility] 04/28/25 Transmitted Every Shift 17:58 Oxygen By Nasal 04/28/25 Transmitted Cannula 17:58 Problem List: (1) Generalized weakness (2) Thrombocytosis (3) Renal calculus, left (4) Electrolyte imbalance (5) Intractable nausea and vomiting Date of Service: Apr 28, 2025 Billing Provider: SELMA NEWELL DNP Common Visit Codes: [id number] INP/OBS CARE (HIGH) SELMA NEWELL DNP Apr 28, 2025 18:00
[2025-04-28] MEDS: ONDANSETRON HCL 4 MG/2 ML VIAL IV PRN (18:05)
[2025-04-28] MEDS: PROCHLORPERAZINE EDISYLATE 5 MG/ML 2ML VIAL IV PRN (19:36)
[2025-04-28] MEDS: SODIUM CHLOR 0.9% PF (SALINE LOCK) 10ML VIAL/SYR IV SCH (19:36)
[2025-04-29] VITALS (7 sets, daily range): BP systolic 106–125; BP diastolic 63–76; PULSE 45–92; RESP 17–19; TEMP 98–99; O2SAT 93–100
[2025-04-29] MEDS: HYDROcodone-ACET 5/325MG TAB PO PRN (01:37)
[2025-04-29 06:16] LABS: Hematocrit 28.4 % (36.0-46.0); Hemoglobin 9.4 g/dL (12.2-16.2); Mean Corpuscular Hemoglobin 27.1 pg (28.0-32.0); Mean Corpuscular Volume 82.2 fL (80.0-100.0); Nucleated Red Blood Cells % 0.0 %
[2025-04-29 06:33] LABS: Alanine Aminotransferase 35 U/L (7-40); Albumin 3.9 g/dL (3.2-4.8); Alkaline Phosphatase 49 U/L (46-116); Anion Gap 12 (5-15); BUN/Creatinine Ratio 18.2 (10.0-20.0); Blood Urea Nitrogen 14 mg/dL (9-23); Calcium 8.8 mg/dL (8.7-10.4); Carbon Dioxide 23 mmol/L (20-31); Glucose 91 mg/dL (74-106); Total Protein 6.3 g/dL (5.7-8.2)
[2025-04-29 06:34] LABS: Bilirubin, Total 0.6 mg/dL (0.2-1.0)
[2025-04-29 06:36] LABS: Chloride 111 mmol/L (98-107); Potassium 3.1 mmol/L (3.5-5.1); Sodium 146 mmol/L (136-145)
[2025-04-29] MEDS: ENOXAPARIN SOD 40 MG/0.4 ML SYRINGE SC SCH (10:00)
[2025-04-29 11:15] LABS: Hepatitis B Surface Antigen Negative (Negative); Hepatitis C Antibody Negative (Negative)
[2025-04-29] MEDS ORDERED: POTASSIUM EFFERVESENT TAB 25 MEQ PO SCH (12:45)
[2025-04-29 13:17] LABS: Free T4 (Free Thyroxine) 1.2 ng/dL (0.89-1.76)
[2025-04-29] MEDS: MAGNESIUM SULFATE 1GM/100ML 100 ML IV SCH (14:08)
[2025-04-29] MEDS: POTASSIUM CHLORIDE 20 MEQ, LIDOCAINE 1% (LOCAL ANESTH.) 2 ML in SODIUM CHL 0.9% 100 ML IV SCH (15:00)
--- NOTE | 2025-04-29 16:18 | DVHPN2 ---
Subjective Nausea still persistent today. Patient reports to using heavy smoking marijuana daily. Patient apparently had a Ramen noodles on Sunday prior to her episodes of nausea vomiting Changes from previous H/P or p: No Changes Eyes: No Pain, No Vision change, No Conjunctivae inflammation, No Eyelid inflammation, No Other, No Redness ENT: No Ear pain, No Ear discharge, No Nose pain, No Nose discharge, No Nose congestion, No Mouth pain, No Mouth swelling, No Throat pain, No Throat swelling, No Other Cardiovascular: No Chest Pain, No Palpitations, No Orthopnea, No Paroxysmal Noc. Dyspnea, No Edema, No Lt Headedness, No Other Respiratory: No Cough, No Dry, No Shortness of breath, No SOB with excertion, No Wheezing, No Hemoptysis, No Pleuritic Pain, No Sputum, No Other Gastrointestinal: Nausea, Vomiting; No Abdominal Pain, No Diarrhea, No Constipation, No Melena, No Hematochezia; Other (Poor appetite) Genitourinary: No Dysuria, No Frequency, No Incontinence, No Hematuria, No Retention, No Other Musculoskeletal: No other, No neck pain, No shoulder pain, No arm pain, No back pain, No hand pain, No leg pain, No foot pain Skin: No Rash, No Lesions, No Jaundice, No Bruising, No Other Objective Vitals Vital Signs Date Time Temp Pulse Resp B/P (MAP) Pulse Ox O2 Delivery O2 Flow Rate FiO2 04/29/25 13:00 98.9 53 19 125/68 (87) 100 98.9 04/29/25 08:00 Room Air* 0 21 Intake/Output Intake and Output 04/29/25 07:00 Intake Total 500 ml Balance 500 ml Intake Oral 500 ml # Voids 1 Exam Alert awake oriented x3. Comfortable in bed. Significant other at bedside. Not in any acute distress. HEENT neck supple no JVD. Pupils equal round react to light. Heart regular rate and rhythm S1 plus S2 without murmurs. Lungs fair air movement. No rales or wheezes. Abdomen is soft nontender positive bowel sounds. Extremities no edema positive pulses Medications Current Medications Medications Dose Ordered Sig/Radha Route Start Time Stop Time Status Last Admin Dose Admin Sodium Chloride 10 ml Q8HR IV 04/28/25 22:00 04/29/25 14:10 10 ML Acetaminophen/ Hydrocodone Bitart 1 tab Q4HP PRN PO 04/28/25 16:30 04/29/25 12:08 1 TAB Ondansetron HCl 4 mg Q4HP PRN IV 04/28/25 16:30 04/29/25 14:04 4 MG Docusate Sodium 100 mg BIDPRN PRN PO 04/28/25 16:30 Enoxaparin Sodium 40 mg DAILY SC 04/29/25 10:00 Acetaminophen 650 mg Q6HP PRN PO 04/28/25 16:30 Nitroglycerin 0.4 mg Q5MINP PRN SL 04/28/25 18:00 Morphine Sulfate 2 mg Q30M PRN IV 04/28/25 18:00 Prochlorperazine Edisylate 10 mg Q6HPRN PRN IV 04/28/25 18:15 04/29/25 08:29 10 MG Potassium Chloride 20 meq/ Potassium Chloride 2 ml/ Sodium Chloride 112 ml @ 56 mls/hr Q3HR IV 04/29/25 15:00 04/29/25 19:59 Pantoprazole Sodium 40 mg BID IV 04/29/25 22:00 Laboratory Results Laboratory Tests 04/29/25 05:11 Chemistry Test 04/29/25 05:11 Albumin 3.9 g/dL (3.2-4.8) Calcium Level 8.8 mg/dL (8.7-10.4) Total Protein 6.3 g/dL (5.7-8.2) LFT Test 04/29/25 05:11 Alanine Aminotransferase (ALT) 35 U/L (7-40) Alkaline Phosphatase 49 U/L (46-116) Aspartate Amino Transferase (AST) 38 U/L (13-40) Total Bilirubin 0.6 mg/dL (0.2-1.0) HgA1c, TSH Test 04/29/25 05:11 Thyroid Stimulating Hormone (TSH) 1.83 uIU/mL (0.55-4.78) Assessment/Plan Assessment/Plan Her symptoms probably related to viral gastroenteritis versus marijuana related hyperemesis syndrome. This is discussed with the patient and significant other at bedside. We will get a GI consultation. Replace her potassium. Clear liquid diet. Proton pump inhibitor. Patient noted to be bradycardic however she is asymptomatic. I will order a 2D echocardiogram and check thyroid panel. Otherwise continue rest of supportive care and treatment. Discussed with the patient regarding care plan Plan discussed with: Patient, Other My Orders Orders - MAURICIO BLEVINS MD Procedure Category Date Status Time Drug Screen LAB 04/29/25 Logged 12:42 * Cardiology Consult CONS 04/29/25 Transmitted 12:42 Pt Request For Service PT 04/29/25 Logged 12:42 * [facility] Operations Asst CONS 04/29/25 Transmitted 13:21 Potassium Chloride PHA 04/29/25 In Process (Potassium Chloride). 15:00 Pantoprazole PHA 04/29/25 In Process (Protonix) 22:00 Urinalysis LAB 04/29/25 Transmitted 16:14 Problem List: (1) Generalized weakness (2) Non-specific colitis (3) Electrolyte imbalance (4) Intractable nausea and vomiting Date of Service: Apr 29, 2025 Billing Provider: MAURICIO BLEVINS MD Common Visit Codes: [id number] INP/OBS CARE(MOD) MAURICIO BLEVINS MD Apr 29, 2025 16:18
--- NOTE | 2025-04-29 17:19 | DVHCONRES ---
Date Seen: Apr 29, 2025 Resident Creating Document: YVONNE VILLAGRAN RESIDENT Referring Physician MAURICIO BLEVINS MD Reason for Consultation Hyperemesis History of Present Illness The patient is a 29-year-old female with a known history of heavy marijuana use, presenting with intractable nausea and vomiting since Sunday, following ingestion of Ramen noodles and daily marijuana smoking. She reports generalized weakness and severe abdominal pain involving all four quadrants. Last bowel movement was on April 27. She was bradycardic upon EMS arrival with a heart rate in the 40s, which improved to 90s after atropine administration in the ED. She denies current diarrhea, hematemesis, melena, or hematochezia. Appetite is poor. Of note, the patient had a prior EGD in 2019 for similar symptoms, which revealed a hiatal hernia (3840 cm) and normal gastric/duodenal mucosa with negative H. pylori. She denies alcohol use, endorses chronic marijuana use, and smokes <1 pack of cigarettes/day. She is currently NPO except for medications, but orders are in place for a full liquid diet, with advancement as tolerated. Interval Events, Labs & Imaging * CT Abdomen/Pelvis: No acute abdominal or pelvic findings. Punctate left renal calculus noted, no hydronephrosis. * Labs (04/29/25): * Hyponatremia: Na 146 * Hypokalemia: K+ 3.1 ? repleted * Elevated AST/ALT: AST 38, ALT 35 * Thrombocytosis: Plt 597 ? 428 * Microcytic anemia: Hgb 11.9 ? 9.4, Hct 36 ? 28.4 * TSH elevated: 5.6, Free T4 normal * Echo: Ordered to evaluate bradycardia * Serologies: Hep B/C Negative Past Medical History * Marijuana-related hyperemesis * Thrombocytosis Past Surgical History * None Family History: Patient reports no known family medical history. Family History * Non-contributory Social History * Marijuana use (daily, heavy) * Cigarette use <1 pack/day * No alcohol use Allergies: Coded Allergies: NO KNOWN ALLERGIES (Unverified , 01/11/20) Home Meds Active Scripts Ondansetron (Zofran) 4 Mg Tab, 1 TAB PO Q6HR PRN for NAUSEA / VOMITING, #20 TAB Prov:VAMSHI KONG Pharmacist 01/30/20 Reported Medications Acetaminophen (Tylenol Extra Strength) 500 Mg Tab, 500 MG PO DAILY PRN for MILD PAIN (1-3 PAIN SCALE), TAB 01/12/20 Current Medications Current Medications Medications (Trade) Dose Ordered Sig/Radha Route PRN Reason Start Time Stop Time Status Last Admin Sodium Chloride (Saline Lock Ns) 10 ml Q8HR IV 04/28/25 22:00 04/29/25 14:10 Enoxaparin Sodium (Lovenox) 40 mg DAILY SC 04/29/25 10:00 Nitroglycerin (Ntrostat Sublingual) 0.4 mg Q5MINP PRN SL FOR CHEST PAIN 04/28/25 18:00 Morphine Sulfate 2 mg Q30M PRN IV FOR CHEST PAIN 04/28/25 18:00 Prochlorperazine Edisylate (Compazine Inj) 10 mg Q6HPRN PRN IV NAUSEA OR VOMITING 04/28/25 18:15 04/29/25 08:29 Potassium Bicarbonate (Klor-Con/Ef) 50 meq Q3HR PO 04/29/25 12:45 04/29/25 13:24 DC Magnesium Sulfate/ Dextrose 100 ml @ 100 mls/hr Q1HR IV 04/29/25 13:00 04/29/25 14:59 DC 04/29/25 15:28 Potassium Chloride 20 meq/ Potassium Chloride 2 ml/ Sodium Chloride 112 ml @ 56 mls/hr Q3HR IV 04/29/25 15:00 04/29/25 19:59 Pantoprazole Sodium (Protonix) 40 mg BID IV 04/29/25 22:00 Review of Systems * GI: Nausea, vomiting. No current abdominal pain, melena, hematochezia, or diarrhea. * : Denies dysuria, hematuria. * CV: Bradycardia initially, no chest pain. * Respiratory: No SOB, cough, or wheezing. * Neuro: Denies dizziness, headache. * Skin: No jaundice or rashes. Vital Signs Vital Signs Date Time Temp Pulse Resp B/P (MAP) Pulse Ox O2 Delivery O2 Flow Rate FiO2 04/29/25 16:52 99.0 92 19 118/70 (86) 93 99.0 04/29/25 08:00 Room Air* 0 21 Physical Exam * General: Appears fatigued, no acute distress. * HEENT: No oral lesions, no dry mucous membranes. * Cardiovascular: HR 90s, regular rhythm. * Respiratory: Clear breath sounds bilaterally. * GI: Abdomen soft but severely tender in all four quadrants, no rebound or guarding noted. * Neuro: Alert and oriented x3. Labs/Diagnostic Data Labs Test 04/29/25 13:25 04/29/25 05:11 Range/Units Plasma/Serum Blood Alcohol < 3.0 <10 mg/dL White Blood Count 6.9 4.4-10.8 10^3/uL Red Blood Count 3.46 L 4.0-5.20 10^6/uL Hemoglobin 9.4 #L 12.2-16.2 g/dL Hematocrit 28.4 #L 36.0-46.0 % Mean Corpuscular Volume 82.2 80.0-100.0 fL Mean Corpuscular Hemoglobin 27.1 L 28.0-32.0 pg Mean Corpuscular Hemoglobin Concent 33.0 32.0-36.0 g/dL Red Cell Distribution Width 14.3 11.8-14.3 % Platelet Count 428 140-450 10^3/uL Mean Platelet Volume 8.0 6.9-10.8 fL Neutrophils (%) (Auto) 56.7 37.0-80.0 % Lymphocytes (%) (Auto) 35.2 10.0-50.0 % Monocytes (%) (Auto) 6.4 0.0-12.0 % Eosinophils (%) (Auto) 0.4 0.0-7.0 % Basophils (%) (Auto) 1.3 0.0-2.0 % Neutrophils # (Auto) 3.9 1.6-8.6 10 ^3/uL Lymphocytes # (Auto) 2.4 0.4-5.4 10 ^3/uL Monocytes # (Auto) 0.4 0-1.3 10 ^3/uL Eosinophils # (Auto) 0 0-0.8 10 ^3/uL Basophils # (Auto) 0.1 0-0.2 10 ^3/uL Nucleated Red Blood Cells 0.0 % Sodium Level 146 H 136-145 mmol/L Potassium Level 3.1 L 3.5-5.1 mmol/L Chloride Level 111 H 98-107 mmol/L Carbon Dioxide Level 23 20-31 mmol/L Anion Gap 12 5-15 Blood Urea Nitrogen 14 9-23 mg/dL Creatinine 0.77 0.550-1.02 mg/dL Glomerular Filtration Rate Calc 106 >90 mL/min BUN/Creatinine Ratio 18.2 10.0-20.0 Serum Glucose 91 74-106 mg/dL Calcium Level 8.8 8.7-10.4 mg/dL Total Bilirubin 0.6 0.2-1.0 mg/dL Aspartate Amino Transferase (AST) 38 13-40 U/L Alanine Aminotransferase (ALT) 35 7-40 U/L Alkaline Phosphatase 49 46-116 U/L Total Protein 6.3 5.7-8.2 g/dL Albumin 3.9 3.2-4.8 g/dL Vitamin B12 Level 556 211-911 pg/mL Thyroid Stimulating Hormone (TSH) 1.83 0.55-4.78 uIU/mL Free Thyroxine (T4) Calculated 1.20 0.89-1.76 ng/dL Hepatitis B Surface Antigen Negative Negative Hepatitis C Antibody Negative Negative Assessment 1. Cannabinoid Hyperemesis Syndrome (CHS) * Likely due to daily heavy marijuana use. Nausea/vomiting episodes triggered post-ingestion. Prior EGD ruled out ulcers, showed hiatal hernia. * Plan: * Rehydration, electrolyte repletion (K+, Na+) * Symptom control: Reglan, Zofran, Compazine PRN * Protonix BID + Carafate PO * NPO initially ? Full liquid diet ? 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 Hiatal Hernia (3840 cm) history of * Not currently symptomatic but may contribute to reflux. * Continue PPI therapy. Reassess need for surgical referral after GI reassessment. 3. Electrolyte Imbalance (Hypokalemia) * Likely secondary to vomiting. * Potassium chloride IV repletion ongoing. 4. Microcytic Anemia * Hgb trending down from 11.9 ? 9.4, platelets high. No active GI bleeding noted. * Monitor CBC daily, consider GI source if anemia worsens. 5. Thrombocytosis * Reactive likely due to stress/dehydration. Continue monitoring. Plan/Recommendation Treatment Plan GI/Nutrition: * Protonix 40 mg IV BID * Carafate 10 mL PO q6h before meals * Reglan 10 mg q6h PRN * Ondansetron 4 mg IV/PO q6h PRN * Full liquid diet - Advance as tolerated * EGD will be scheduled ON SUNDAY if symptoms persist by Sunday Fluids/Electrolytes: * NS 10 mL IV lock * Potassium chloride 20 mEq IV x2 doses * Monitor daily electrolytes, CMP Hematology: * Monitor CBC daily * Reassess need for iron studies or GI bleed workup Cardiac: * Monitor telemetry (initial bradycardia responsive to atropine) * Echocardiogram ordered * Monitor HR, BP Endocrine: * Elevated TSH (5.6) with normal Free T4 * Consider repeat TSH in 6 weeks or outpatient endocrine referral Prophylaxis: * GI: PPI for stress ulcer prevention * Bowel regimen: Colace 100 mg BID PRN Case discussed in detail with the attending physician, including the clinical presentation, diagnostic workup, and comprehensive management plan. The patient was present for the discussion and demonstrated understanding of her condition and the proposed plan Plan discussed with: Patient YVONNE VILLAGRAN RESIDENT Apr 29, 2025 17:19
--- NOTE | 2025-04-29 17:21 | DVHSR ---
APPROVED REPORT EXAM: Two-dimensional and M-mode echocardiogram with Doppler and color Doppler. Blood Pressure: 106/63 mmHg INDICATION Bradycardia RISK FACTORS Height: 66, Weight: 132 DIMENSIONS LVDd4.3 (3.8-5.7cm)LA (2D)3.7 (1.9-4.0cm)Aortic Root2.9 (2.0-3.7cm) LVDs2.9 (2.5-4.0cm)LA (MM) (1.9-4.0cm)Aortic Cusp Exc1.5 (1.5-2.0cm) EF (%) 60.0 (55-70%)Rt. Atrium3.4 (1.9-4.0cm)Asc. Aorta cm IVSd0.8 (0.7-1.1cm)RV (D) (1.8-2.4cm) PWd1.0 (0.7-1.1cm) Mitral Valve MitralMitral Stenosis E wave0.75m/sMV Mean GR.mmHg A wave0.39m/sMV Peak GR.mmHg E/A ratio1.92D MVAcm2 DECEL [id number] 1/2 Timems Aortic Valve Aortic ValveAortic Stenosis V11.53m/Stacy Mean GR.5mmHg V21.60m/Stacy Peak GR.10mmHg LVOT Diameter1.9 (1.8-2.4cm)Doppler AVA2.71cm2 Pulmonic Valve V21.04m/s Tricuspid Valve TR Velocity2.11m/s [id number] Conclusion lvef 70% normal rv function normal atria no severe valve abnormalities noted
[2025-04-29] MEDS: SUCRALFATE 1 GM/10 ML ORAL SUSP GT SCH (22:13)
[2025-04-29] MEDS: PANTOPRAZOLE 40 MG/10 ML VIAL INJ IV SCH (22:13)
[2025-04-29] MEDS: METOCLOPRAMIDE HCL 10 MG TAB PO SCH (22:14)
[2025-04-30] VITALS (7 sets, daily range): BP systolic 109–133; BP diastolic 62–80; PULSE 48–64; RESP 14–20; TEMP 98.1–98.6; O2SAT 98–100
[2025-04-30 04:45] LABS: Urine Protein, UAD Negative (Negative)
[2025-04-30 04:48] LABS: Cannabinoid Screen, Urine Pos (NEGATIVE); Opiate Scree,Urine Pos (NEGATIVE)
[2025-04-30 04:49] LABS: Amphetamine Screen, Urine Neg (NEGATIVE); Barbiturate Scree,Urine Neg (NEGATIVE); Benzodiazephine Screen, Urine Neg (NEGATIVE); Cocaine Screen, Urine Pos (NEGATIVE); Phencyclidine Screen, Urine Neg (NEGATIVE)
[2025-04-30 06:50] LABS: Sodium 143 mmol/L (136-145)
[2025-04-30 06:51] LABS: Anion Gap 10 (5-15); Carbon Dioxide 25 mmol/L (20-31); Chloride 108 mmol/L (98-107); Potassium 3.4 mmol/L (3.5-5.1)
[2025-04-30 06:56] LABS: Glucose 75 mg/dL (74-106)
[2025-04-30 06:57] LABS: BUN/Creatinine Ratio 12.0 (10.0-20.0); Blood Urea Nitrogen 9 mg/dL (9-23); Magnesium 2.1 mg/dL (1.6-2.6)
[2025-04-30 07:04] LABS: Calcium 8.6 mg/dL (8.7-10.4)
[2025-04-30] MEDS ORDERED: FLEET ENEMA(ADULT) 135 ML PR ONE (10:30)
[2025-04-30] MEDS: DOCUSATE SOD 100 MG CAP PO PRN (12:39)
[2025-04-30] MEDS: LACTULOSE 20Gm/30ML SOLN PO ONE (13:19)
[2025-04-30] MEDS: POTASSIUM CHLORIDE 20 MEQ, LIDOCAINE 1% (LOCAL ANESTH.) 2 ML in SODIUM CHL 0.9% 100 ML IV ONE (13:20)
--- NOTE | 2025-04-30 14:09 | DVHPN2 ---
Progress Note Date Seen: Apr 30, 2025 Resident Creating Document: YVONNE VILLAGRAN RESIDENT Has the PT tested + for MRSA If YES, has PT been informed?: No Medical Necessity Reason Pt with a Central, PICC or Fol: No Subjective Review of Systems This is a 29-year-old female admitted with persistent nausea, vomiting, and abdominal pain since April 25 following heavy daily marijuana use. She remains symptomatic today. Patient reports: * Continued nausea and vomiting; unable to tolerate oral intake * No bowel movement since April 27 * Denies flatus, reports no abdominal pain today * Endorses poor appetite She is currently on a full liquid diet, but is unable to retain food and has vomited all oral intake attempts. Per plan, she is being kept NPO after midnight for EGD scheduled tomorrow morning. Today's Summary & Progress * Abdominal pain improved * Persistent intractable nausea/vomiting * Still no bowel movement * No gas passage * Full liquid diet attempted ? vomited * Scheduled for EGD tomorrow AM * New orders: Lactulose, Miralax, Fleet enema Objective vital signs Vital Sign Date Time Temp Pulse Resp B/P (MAP) Pulse Ox O2 Delivery O2 Flow Rate FiO2 04/30/25 09:01 98.2 64 16 113/80 (91) 98 98.2 04/29/25 20:00 Room Air* 0 21 Total Intake and Output 04/29/25 04/29/25 04/30/25 15:00 23:00 07:00 Intake Total 100 ml 1162 ml 400 ml Balance 100 ml 1162 ml 400 ml medications Current Medications Medications Dose Ordered Sig/Radha Route Start Time Stop Time Status Last Admin Dose Admin Sodium Chloride 10 ml Q8HR IV 04/28/25 22:00 04/30/25 13:20 10 ML Acetaminophen/ Hydrocodone Bitart 1 tab Q4HP PRN PO 04/28/25 16:30 04/29/25 20:35 1 TAB Ondansetron HCl 4 mg Q4HP PRN IV 04/28/25 16:30 04/30/25 08:45 4 MG Docusate Sodium 100 mg BIDPRN PRN PO 04/28/25 16:30 04/30/25 12:39 100 MG Enoxaparin Sodium 40 mg DAILY SC 04/29/25 10:00 04/30/25 08:45 40 MG Acetaminophen 650 mg Q6HP PRN PO 04/28/25 16:30 Nitroglycerin 0.4 mg Q5MINP PRN SL 04/28/25 18:00 Morphine Sulfate 2 mg Q30M PRN IV 04/28/25 18:00 Prochlorperazine Edisylate 10 mg Q6HPRN PRN IV 04/28/25 18:15 04/30/25 13:18 10 MG Pantoprazole Sodium 40 mg BID IV 04/29/25 22:00 04/30/25 08:44 40 MG Sucralfate 1 gm TID@0600,1130,2200 GT 04/29/25 22:00 04/30/25 12:39 1 GM Metoclopramide HCl 5 mg Q8HR PO 04/29/25 22:00 04/30/25 13:19 5 MG Polyethylene Glycol 17 gm DAILY PO 05/01/25 10:00 Lactulose 30 ml Q8HR PO 04/30/25 22:00 Examination * General: Tired appearance * Abdomen: Abdomen no longer severely tender, now soft, non-distended, normoactive bowel sounds. No rebound/guarding. * GI Intake: Poor PO tolerance to full liquid diet laboratory and microbiology Laboratory Tests 04/30/25 05:10 04/29/25 05:11 Test 04/30/25 05:10 Range/Units Serum Glucose 75 74-106 mg/dL Problem List/Assessment/Plan Problem List/Assessment/Plan Assessment 1. Intractable Nausea and Vomiting * Likely multifactorial: Cannabinoid hyperemesis syndrome, hiatal hernia, possible delayed gastric emptying, constipation * Persistent despite antiemetics * Differential: Gastritis, Gastroparesis, Cyclic vomiting syndrome, Gastric outlet obstruction (less likely ruled out on CT) 2. Constipation/Delayed Bowel Transit * Last BM 04/27, no flatus * No obstruction on imaging * Possibly exacerbated by vomiting, decreased intake, dehydration 3. Hiatal Hernia * Documented on 2019 EGD * May contribute to reflux/vomiting 4. Suspected Cannabinoid Hyperemesis Syndrome * Strong history of daily marijuana use * Nausea/vomiting worsens with use, consistent pattern * Counseling and cessation are essential System-Based Treatment Plan Gastrointestinal: * Keep NPO after midnight * EGD scheduled for tomorrow to reassess hiatal hernia and evaluate mucosa * Protonix 40 mg IV BID for acid suppression and stress ulcer prophylaxis * Carafate 10 mL PO QID before meals and bedtime * Ondansetron 4 mg IV PRN for nausea * Reglan 10 mg PO/IV Q6H PRN * Compazine 10 mg IV PRN * Hydration with IV fluids as needed * Add Lactulose 30 mL PO BID, Miralax 17g PO BID, Fleet enema today for constipation * Reassess bowel movement daily * Consider abdominal X-ray if no BM in 24 hrs Nutrition: * Currently on full liquid now NPO after midnight * If vomiting persists post-EGD, consider GI motility studies * Nutrition consult if prolonged NPO Medications: * Continue: * Protonix 40 mg IV BID * Ondansetron IV PRN * Reglan 10 mg PRN * Sucralfate 10 mL PO QID * Add: * Lactulose * Miralax * Fleet enema * Discontinue oral feeds if not tolerated Prophylaxis: * Bowel regimen: Colace + Miralax Plan discussed with: Patient My Orders My Orders Orders - YVONNE VILLAGRAN RESIDENT Procedure Category Date Status Time Sucralfate Susp PHA 04/29/25 In Process (Carafate Susp) 22:00 Metoclopramide Tablet PHA 04/29/25 In Process (Reglan Tablet) 22:00 Full Liq Diet DIET 04/29/25 Transmitted Dinner Advance Diet As LUISITO 04/30/25 In Process Tolerated 17:07 Obtain Consent For: ORDERS 04/30/25 Transmitted 12:22 Npo (Nothing By DIET 05/01/25 Transmitted Mouth) Diet Breakfast Obtain Consent For LUISITO 04/30/25 In Process Anesthesia 12:22 Dietary Evaluation Review Comments: Continue cardiac Diet Monitor PO intake to meet 75% of her needs Expected Outcomes/Goals: Free from GI symptoms, maintain BW YVONNE VILLAGRAN RESIDENT Apr 30, 2025 14:09
--- NOTE | 2025-04-30 20:41 | DVHPN2 ---
Subjective Nausea still persistent today. Evaluated by GI to consider EGD if patient does not improve in the next 24 hours. Changes from previous H/P or p: No Changes Gastrointestinal: Nausea, Vomiting, Other (Poor appetite) Objective Vitals Vital Signs Date Time Temp Pulse Resp B/P (MAP) Pulse Ox O2 Delivery O2 Flow Rate FiO2 04/30/25 17:30 98.2 48 14 133/77 (95) 100 98.2 04/30/25 08:00 Room Air* 0 21 Intake/Output Intake and Output 04/30/25 07:00 Intake Total 1662 ml Balance 1662 ml Intake Oral 700 ml IV Total 962 ml # Voids 3 Exam Alert awake oriented x3. Comfortable in bed. Significant other at bedside. Not in any acute distress. HEENT neck supple no JVD. Pupils equal round react to light. Heart regular rate and rhythm S1 plus S2 without murmurs. Lungs fair air movement. No rales or wheezes. Abdomen is soft nontender positive bowel sounds. Extremities no edema positive pulses Medications Current Medications Medications Dose Ordered Sig/Radha Route Start Time Stop Time Status Last Admin Dose Admin Sodium Chloride 10 ml Q8HR IV 04/28/25 22:00 04/30/25 13:20 10 ML Acetaminophen/ Hydrocodone Bitart 1 tab Q4HP PRN PO 04/28/25 16:30 04/29/25 20:35 1 TAB Ondansetron HCl 4 mg Q4HP PRN IV 04/28/25 16:30 04/30/25 15:42 4 MG Docusate Sodium 100 mg BIDPRN PRN PO 04/28/25 16:30 04/30/25 12:39 100 MG Enoxaparin Sodium 40 mg DAILY SC 04/29/25 10:00 04/30/25 08:45 40 MG Acetaminophen 650 mg Q6HP PRN PO 04/28/25 16:30 Nitroglycerin 0.4 mg Q5MINP PRN SL 04/28/25 18:00 Morphine Sulfate 2 mg Q30M PRN IV 04/28/25 18:00 Prochlorperazine Edisylate 10 mg Q6HPRN PRN IV 04/28/25 18:15 04/30/25 13:18 10 MG Pantoprazole Sodium 40 mg BID IV 04/29/25 22:00 04/30/25 08:44 40 MG Sucralfate 1 gm TID@0600,1130,2200 GT 04/29/25 22:00 04/30/25 12:39 1 GM Metoclopramide HCl 5 mg Q8HR PO 04/29/25 22:00 04/30/25 13:19 5 MG Polyethylene Glycol 17 gm DAILY PO 05/01/25 10:00 Lactulose 30 ml Q8HR PO 04/30/25 22:00 Laboratory Results Laboratory Tests 04/29/25 05:11 04/30/25 05:10 Chemistry Test 04/30/25 05:10 Calcium Level 8.6 mg/dL (8.7-10.4) L Magnesium Level 2.1 mg/dL (1.6-2.6) Urinalysis Test 04/30/25 03:30 Urine Color Yellow (Yellow) Urine Clarity Clear (Clear) Urine pH 6.0 (5.0-9.0) Urine Specific [place] 1.027 (1.001-1.035) Urine Protein Negative (Negative) Urine Ketones 2+ (Negative) H Urine Blood 2+ /uL (Negative) H Urine Nitrite Negative (Negative) Urine Bilirubin Negative (Negative) Urine Urobilinogen 6 mg/dL (Negative) Urine Leukocyte Esterase Negative /uL (Negative) Urine RBC 1 /hpf (0 - 4) Urine Microscopic WBC 3 /HPF (0-5) Urine Squamous Epithelial Cells Few /hpf (<5) Urine Bacteria None seen /hpf (None Seen) Urine Mucus Few (None Seen) Urine Glucose Normal mg/dL (Normal) Assessment/Plan Assessment/Plan Continue present management as she is on. Consider EGD if does not improve symptoms in the next 24 hours. To replace electrolytes as needed. Discussed with the nurse regarding care plan. Plan discussed with: Patient, Other My Orders Orders - MAURICIO BLEVINS MD Procedure Category Date Status Time Lactulose Oral PHA 04/30/25 In Process 22:00 Date of Service: Apr 30, 2025 Billing Provider: MAURICIO BLEVINS MD Common Visit Codes: [id number] INP/OBS CARE(MOD) MAURICIO BLEVINS MD Apr 30, 2025 20:41
[2025-04-30] MEDS: LACTULOSE 20Gm/30ML SOLN PO SCH (21:32)
[2025-04-30] MEDS ORDERED: LACTULOSE 20Gm/30ML SOLN PO SCH (22:00)
[2025-05-01] VITALS (8 sets, daily range): BP systolic 102–129; BP diastolic 65–80; PULSE 51–105; RESP 17–20; TEMP 97.9–98.9; O2SAT 98–100
[2025-05-01] MEDS: POLYETHYLENE GLYCOL 17 GM PWDR PO SCH (10:00)
[2025-05-01] MEDS ORDERED: NYS5LQ MT (12:56)
[2025-05-01] MEDS ORDERED: PANT40T PO (12:56)
[2025-05-01] MEDS ORDERED: SUCR1SUS26 PO (12:56)
[2025-05-01] MEDS ORDERED: METOCLOPRAMIDE HCL 5MG/ml INJ 2ml VIAL ONE (14:51)
[2025-05-01] MEDS ORDERED: ONDANSETRON HCL 4 MG/2 ML VIAL ONE (14:51)
[2025-05-01] MEDS ORDERED: LIDOCAINE 2% (LOCAL ANESTH.) PF 5ml SDV ONE (14:51)
[2025-05-01] MEDS ORDERED: PROPOFOL 10 MG/ML 20 ML IV ONE (14:52)
--- NOTE | 2025-05-01 15:14 | DVHOP2 ---
Operative Report DATE OF OPERATION: 05/01/25 PROCEDURE: Upper Endoscopy with biopsy. PREOPERATIVE INDICATION: The patient is a 29 -year-old female undergoing endoscopy for recurrent nausea and vomiting POSTOPERATIVE DIAGNOSES: 1. 0.5-1 cm sliding-type hiatal hernia with no significant erosive esophagitis 2. Minimal gastropathy otherwise normal examination up to the 2nd and 3rd part of the duodenum PROCEDURE PERFORMED BY: Shannen Barrios GI NURSE: [place] SCOPE: Olympus videoendoscope. ASA CLASS: 2. PREOPERATIVE MEDICATIONS: Mac sedation, Marco Garcia PROCEDURE IN DETAIL: After obtaining an informed consent, the patient was placed on left lateral decubitus position. The patient was then sedated with the above medications. A bite block was placed between her teeth. The endoscope was then passed through the oropharynx, into the esophagus, and through the stomach and pylorus up to the second and third part of the duodenum. The endoscope was then withdrawn. Second and 3rd part of the duodenum and the duodenal bulb were normal. Duodenal biopsies were obtained The pre-pyloric area antrum and body showed mild gastropathy. Gastric biopsies were obtained. On retroflexion the fundus cardia and angularis were normal. The endoscope was then withdrawn into distal esophagus The patient had a 5 mm extension of columnar epithelium into the distal esophagus or 0.5 cm sliding-type hiatal hernia There was no significant erosive esophagitis. The remaining distal and proximal esophagus and oropharynx were unremarkable The patient tolerated the procedure well without difficulty. COMPLICATIONS : None SPECIMENS: Duodenal biopsies Gastric biopsies DISPOSITION: Transfer back to the floor Be able PLAN: 1. Await for biopsy result 2. Will place pt on Protonix 40 mg p.o. daily 3. DC aspirin NSAIDs smoking alcohol and marijuana 4. Zofran as needed for nausea and vomiting 5. Resume GI soft diet advance as tolerated 6. Outpatient follow up with me in 4-6 weeks to review results and discuss further management SHANNEN BARRIOS MD May 01, 2025 15:14
--- NOTE | 2025-05-01 19:14 | DVHDS2 ---
Discharge Summary Date of Admission Apr 28, 2025 at 17:58 Date of Discharge: May 01, 2025 Labs/Diagnostic Data: Laboratory Results Test 04/30/25 05:10 04/30/25 03:30 04/29/25 13:25 04/29/25 05:11 Sodium Level 143 mmol/L (136-145) Potassium Level 3.4 mmol/L (3.5-5.1) Chloride Level 108 mmol/L (98-107) Carbon Dioxide Level 25 mmol/L (20-31) Anion Gap 10 (5-15) Blood Urea Nitrogen 9 mg/dL (9-23) Creatinine 0.75 mg/dL (0.550-1.02) Glomerular Filtration Rate Calc 109 mL/min (>90) BUN/Creatinine Ratio 12.0 (10.0-20.0) Serum Glucose 75 mg/dL (74-106) Calcium Level 8.6 mg/dL (8.7-10.4) Magnesium Level 2.1 mg/dL (1.6-2.6) Urine Color Yellow (Yellow) Urine Clarity Clear (Clear) Urine pH 6.0 (5.0-9.0) Urine Specific [place] 1.027 (1.001-1.035) Urine Protein Negative (Negative) Urine Ketones 2+ (Negative) Urine Blood 2+ /uL (Negative) Urine Nitrite Negative (Negative) Urine Bilirubin Negative (Negative) Urine Urobilinogen 6 mg/dL (Negative) Urine Leukocyte Esterase Negative /uL (Negative) Urine RBC 1 /hpf (0 - 4) Urine Microscopic WBC 3 /HPF (0-5) Urine Squamous Epithelial Cells Few /hpf (<5) Urine Bacteria None seen /hpf (None Seen) Urine Mucus Few (None Seen) Urine Glucose Normal mg/dL (Normal) Urine Opiates Screen Pos (NEGATIVE) Urine Fentanyl Screen Neg (NEGATIVE) Urine Barbiturates Screen Neg (NEGATIVE) Urine Phencyclidine Screen Neg (NEGATIVE) Urine Amphetamines Screen Neg (NEGATIVE) Urine Benzodiazepines Screen Neg (NEGATIVE) Urine Cocaine Screen Pos (NEGATIVE) Urine Cannabinoids Screen Pos (NEGATIVE) Plasma/Serum Blood Alcohol < 3.0 mg/dL (<10) White Blood Count 6.9 10^3/uL (4.4-10.8) Red Blood Count 3.46 10^6/uL (4.0-5.20) Hemoglobin 9.4 g/dL (12.2-16.2) Hematocrit 28.4 % (36.0-46.0) Mean Corpuscular Volume 82.2 fL (80.0-100.0) Mean Corpuscular Hemoglobin 27.1 pg (28.0-32.0) Mean Corpuscular Hemoglobin Concent 33.0 g/dL (32.0-36.0) Red Cell Distribution Width 14.3 % (11.8-14.3) Platelet Count 428 10^3/uL (140-450) Mean Platelet Volume 8.0 fL (6.9-10.8) Neutrophils (%) (Auto) 56.7 % (37.0-80.0) Lymphocytes (%) (Auto) 35.2 % (10.0-50.0) Monocytes (%) (Auto) 6.4 % (0.0-12.0) Eosinophils (%) (Auto) 0.4 % (0.0-7.0) Basophils (%) (Auto) 1.3 % (0.0-2.0) Neutrophils # (Auto) 3.9 10 ^3/uL (1.6-8.6) Lymphocytes # (Auto) 2.4 10 ^3/uL (0.4-5.4) Monocytes # (Auto) 0.4 10 ^3/uL (0-1.3) Eosinophils # (Auto) 0 10 ^3/uL (0-0.8) Basophils # (Auto) 0.1 10 ^3/uL (0-0.2) Nucleated Red Blood Cells 0.0 % Total Bilirubin 0.6 mg/dL (0.2-1.0) Aspartate Amino Transferase (AST) 38 U/L (13-40) Alanine Aminotransferase (ALT) 35 U/L (7-40) Alkaline Phosphatase 49 U/L (46-116) Total Protein 6.3 g/dL (5.7-8.2) Albumin 3.9 g/dL (3.2-4.8) Vitamin B12 Level 556 pg/mL (211-911) Thyroid Stimulating Hormone (TSH) 1.83 uIU/mL (0.55-4.78) Free Thyroxine (T4) Calculated 1.20 ng/dL (0.89-1.76) Hepatitis B Surface Antigen Negative (Negative) Hepatitis C Antibody Negative (Negative) Other Laboratory Tests 04/30/25 05:10 04/29/25 05:11 Final Diagnosis/Problems List acute mild gastritis Discharge Disposition: Home Discharge Instruct/Medications Diet: See Comment Diet comment: mechanical soft Activity: No Restrictions, As Tolerated Follow Up/Referral: primary care 7-10 days GI follow up within 2 weeks Medications: As prescribed Scheduled Nystatin (Mouth-Throat) (Mycostatin (Mouth-Throat)), 5 ML MT QID Pantoprazole Sodium Sesquihydr (Pantoprazole Sodium), 40 MG PO BID Sucralfate (Carafate Susp), 10 ML PO QID Scheduled PRN Acetaminophen (Tylenol Extra Strength), 500 MG PO DAILY PRN for MILD PAIN (1-3 PAIN SCALE), (Reported) Ondansetron (Zofran), 1 TAB PO Q6HR PRN for NAUSEA / VOMITING Discharge Statement: "Patient was advised to return to the ER or call 911 if any headaches, dizziness, shortness of breath, chest pain, abdominal pain, bleeding, fevers, or worsening of medical condition. Patient was counseled about treatment plan, medications, possible side effects, patientverbalized understanding. All questions were answered to the best of my ability. This discharge took greater then 30 minutes in planning, reviewing documentation, counseling the patient, and discussing with other team members." ASSESSMENT ASSESSMENT Assessment acute mild gastritis MAURICIO BLEVINS MD May 01, 2025 19:14
== END 2025-05-01 18:20 | disposition home or self-care (01) | DRG 241 ==
LOC: EDBD 14:32 → ER 14:32 → OVERFLOW 17:58 → TELE-CENTR 23:43
PROVIDERS: ADMIT Hospitalist; ATTEND Hospitalist
PROC: 0DB98ZX Excision of Duodenum, Via Natural or Artificial Opening Endoscopic, Diagnostic (ICD-10-PCS; 2025-05-01)
PROC: 0DB68ZX Excision of Stomach, Via Natural or Artificial Opening Endoscopic, Diagnostic (ICD-10-PCS; principal; 2025-05-01 14:57)
DX: K29.70 Gastritis, unspecified, without bleeding (principal); E87.0 Hyperosmolality and hypernatremia; I95.9 Hypotension, unspecified; D50.9 Iron deficiency anemia, unspecified; D75.839 Thrombocytosis, unspecified; F12.90 Cannabis use, unspecified, uncomplicated; E87.6 Hypokalemia; K52.9 Noninfective gastroenteritis and colitis, unspecified; N20.0 Calculus of kidney; K44.9 Diaphragmatic hernia without obstruction or gangrene; F17.210 Nicotine dependence, cigarettes, uncomplicated; K31.9 Disease of stomach and duodenum, unspecified; R00.1 Bradycardia, unspecified
CPT/HCPCS: 36415; 43239; 74176; 80048; 80053; 80307; 80320; 81001; 82607; 83735; 84439; 84443; 85025; 86803; 87340; 93005; 93306; 96361; 96372; 96374; 97116; 97162; G0378; J2003; J2405; J2470; J2704